=== PATIENT | female | born 1985 | race Caucasian/White ===

== ENCOUNTER 2020-10-25 02:03 | Emergency (ER) | payer BC, SELFPAY ==
[2020-10-25 02:10] VITALS: BP 137/83; PULSE 72; RESP 18; TEMP 36.7; O2SAT 98; BMI 27.4
--- NOTE | 2020-10-25 02:35 | PC.NURSE ---
PATIENT WAKING UP YELLING AT STAFF TO LOWER THE HEAD OF THE BED, PATIENT SWEARING I HAVE BEEN HERE FOR FUCKING HOURS, I AM TRYING TO GET SOME GODDAMN SLEEP EDUCATING PATIENT THAT SHE HAS BEEN IN THE ER FOR 17 MINUTES. PATIENT SIGHING AND ASKING NOW TO BE LEFT ALONE. ALSO RECEIVING A PHONE CALL FROM A MAN CLAIMING TO BE HER BOYFRIEND, REPORTS THAT HE WAS IN THE BUILDING WITH HER, EMS DENIED ANYONE ELSE IN THE APARTMENT, THIS INDIVIDUAL ON THE PHONE GIVING THE WRONG DATE OF FOR PATIENT. WANTING CONFIRMATION THAT SHE WAS IN THE EMERGENCY DEPARTMENT HERE. STATING THAT IF A PATIENT IS OVER THE AGE OF 18 NO INFORMATION CAN BE GIVEN WITHOUT PATIENTS CONSENT. ASKING FOR HIS NUMBER SO PATIENT CAN CALL HIM IF SHE WOULD LIKE TOO. CALLER ON THE PHONE BECOMING VERBALLY ABUSIVE, SWEARING AT THIS STAFF MEMBER DEMANDING TO KNOW ABOUT PATIENT. CONTINUING TO ASK FOR HIS NAME AND NUMBER, CALLER EVENTUALLY PROVIDING THE INFORMATION. NUMBER GIVEN TO PATIENT WHO IS UNABLE TO MAKE A PHONE CALL AT THIS TIME DUE TO LEVEL OF INTOXICATION.
--- NOTE | 2020-10-25 03:59 | PC.NURSE ---
Attempted to draw lab on patient. Patient was sleeping and told this tech to leave me the fuck alone upon arousal. Patient refused to remove self from underneath blanket. This tech attempted 3x, patient ignoring tech and/or swearing each time.
[2020-10-25 04:00] VITALS: PULSE 75; RESP 16; O2SAT 99
--- NOTE | 2020-10-25 04:25 | ED.ALCOHOL ---
HPI - Alcohol General Chief Complaint: ETOH/Substance Use Stated Complaint: ETOH Time Seen by Provider: 10/25/20 04:25 Source: patient and EMS Mode of arrival: EMS History of Present Illness HPI narrative: 35-year-old female arrives via EMS brought in home when police had arrived home after being called for the smoke alarm going off the patient was cooking patient was noted be intoxicated initially in the closet stating that she was white and afraid of the police . Patient denies any acute complaints such as shortness of breath, chest pain / palpitations, any GI symptoms. Related Data Allergies Allergy/AdvReac Type Severity Reaction Status Date / Time Penicillins Allergy Hives Verified 10/25/20 02:09 Review of Systems Review of Systems: Pertinent positives and negatives as stated in HPI and 10 of systems is otherwise negative. PMFSH Past Medical History Source: nursing notes reviewed Social History Social History Advance Directives: No Advance Directives Information Provided: No Patient : No Physical Exam Vital Signs: Vital Signs: Last Vital Signs Temp 98.0 F 10/25/20 02:10 Pulse 75 10/25/20 06:00 Resp 16 10/25/20 06:00 BP 137/83 10/25/20 02:10 Pulse Ox 94 10/25/20 06:00 Body Mass Index 27.4 VITAL SIGNS: Reviewed. GENERAL: Intoxicated, Well developed, well nourished, in no acute distress. HEAD: Normocephalic/atraumatic EYES: PERRLA, EOMI OROPHARYNX: no oral lesions noted, posterior pharynx clear LUNGS: Normal breath sounds. SpO2<94> CARDIOVASCULAR: Regular rate and rhythm without noted murmurs ABDOMEN: Soft, non-tender, non-distended with bowel sounds. SKIN: Inspection of the skin reveals no rashes NEUROLOGIC: Alert and oriented x 4. Course Course Course Narrative: 35-year-old female with history clinical presentation consistent intoxication. Patient requires further observation in the emergency room secondary to her intoxication and inability to obtain a safe ride home. 0545: Patient re-evaluated and is clinically sober to obtain commercial transportation home. She walks with steady gait and was discharged in stable condition. Discharge Plan Discharge Clinical Impression: Alcoholic intoxication Patient Disposition: Home, Self-Care Instructions: Alcohol Intoxication (ED), Abuse of Alcohol (ED) Additional Instructions: Return to the ER for acute worsening of symptoms Referrals: Physician,Unknown [Primary Care Provider] - 2 days Interventions: ED Discharge Assessment Last Done: 10/25/20 06:47 Discharge Date/Time: 10/25/20 06:48
[2020-10-25 06:00] VITALS: PULSE 75; RESP 16; O2SAT 94
--- NOTE | 2020-10-25 06:22 | PC.NURSE ---
Pt suddenly awoke from a sleep fuck you bitches, you promised me juice crackers, and a cab ride home. Pt had verbalized to doctor that she would obtain an uber home. pt is alert and orientated x 4 with steady gait. skin p/w/d. Pt behavior continued to escliate and provider stated pt was cleared to leave and subsequently escorted out by security.
--- NOTE | 2020-10-25 06:26 | PC.NURSE ---
patient yelling out into the hallway i know you bitches can all hear me. where are my fucking juice and crackers . patient was reevaluated by provider and offered a snack and that plan of care was for her to be discharged home. patient responding that she will get an uber home. after waiting about 3 minutes for a snack patient starts yelling and using fowl language at staff, screaming about her juice and crackers. security being called due to patients increasing hostility. where is my fucking cab, you were supposed to call me one . staff members having no conversation with patient about needing a cab, patient informed staff she would be getting an uber. patient given a cup for water and salines from security as she waits for a ride in the waiting room.
== END 2020-10-25 06:48 | disposition home or self-care (01) ==
PROVIDERS: Emergency Provider Student in an Organized Health Care Education/Training Program
DX: F10.129 Alcohol abuse with intoxication, unspecified (principal); Y90.9 Presence of alcohol in blood, level not specified
CPT/HCPCS: 99283; 99284

== ENCOUNTER 2021-05-24 15:02 | Emergency (ER) | payer BC, SELFPAY ==
--- NOTE | 2021-05-24 15:16 | ED_ITS ---
HPI - Psych General Chief Complaint: Psychiatric Symptoms Stated Complaint: CRISIS, NON MED COMPLIANT PER EMS Time Seen by Provider: 05/24/21 15:15 Source: patient Mode of arrival: EMS Limitations: no limitations History of Present Illness MD complaint: feels depressed (coming off of lexapro of her own choosing due to weight gain and other side effects has fleeting thoughts of SI told a friend today who then told her mom - mom called 911) Onset (ago): month(s) (1) Duration: intermittent History of same: Yes Relieving factors: none Exacerbating factors: medication Context: not taking psychiatric medications Associated psychiatric symptoms: depression and suicidal ideation Associated symptoms: denies other symptoms Treatments prior to arrival: none Related Data Home Medications Medication Instructions Recorded Confirmed escitalopram oxalate 20 mg tablet 1 tab PO DAILY 05/24/21 05/24/21 methocarbamol 500 mg tablet 1 tab PO DAILY 05/24/21 05/24/21 Allergies Allergy/AdvReac Type Severity Reaction Status Date / Time Penicillins Allergy Hives Verified 10/25/20 02:09 Review of Systems Verdana 4l Review of Systems: Verdana 4d Verdana 4d Constitutional : No Fever, No Chills ENT/Mouth : No Ear Pain, No Nasal Congestion, No sore throat Eyes: No Eye Pain, No Swelling, No Redness Cardiovascular : No Chest Pain, No SOB Respiratory : No Cough, No Sputum, No Dyspnea GastrointestinalGastrointestinal : No Nausea, No Vomiting, No Diarrhea, No Hematochezia, No Melena Genitourinary : No Dysuria, No Urinary Frequency, No Hematuria Musculoskeletal : No Myalgias Skin : No Skin Lesions, No rash Neuro : No Weakness, No Numbness, No Paresthesias, No Dizziness, No Headache Psych : positive Anxiety, positive Depression, positive intermittent SI no HI Heme/Lymph: No Lymphadenopathy Endocrine : No Polyuria, No Polydipsia All other systems reviewed and are negative [facility] Past Medical History Attestation statement: The following information was validated with the patient. Medical History Anxiety Depression Social History Social History (Updated 05/24/21 @ 15:43 by Cristina Bonner DO) Patient Tobacco Use Status: Never used Tobacco Substance Use Type: Marijuana Advance Directives: No Advance Directives Information Provided: No Physical Exam Verdana 4l Vital Signs: Verdana 4d Verdana 4d Vital Signs: Verdana 4d Verdana 4Bd Last Vital Signs Verdana 4d Broommaking Supervisor New 4d Broommaking Supervisor New 4d Temp 98.0 F 05/24/21 19:27 Broommaking Supervisor New 4d Pulse 63 05/24/21 19:27 Broommaking Supervisor New 4d Resp 18 05/24/21 19:27 BP 136/92 H 05/24/21 19:27 Pulse Ox 100 05/24/21 19:27 BMI result Body Mass Index 29.2 Appearance: Alert. Oriented X3. No acute distress. Slightly agitated Eyes: Pupils equal, round and reactive to light. Sunglasses on ENT: Pharynx normal. Neck: Normal inspection. Neck supple. CVS: Normal heart rate and rhythm. Pulses normal. Respiratory: No respiratory distress. Breath sounds normal. Abdomen: Soft and nontender. Skin: Skin warm and dry. Normal skin color. Normal skin turgor. Extremities: No lower extremity edema. No calf ttp Neuro: Oriented X 3. No motor deficit. No sensory deficit. CN2-12 intact Course Course Course Narrative: Physician observation started at 851pm Patient placed in physician observation because the patient needed more time for CARE team to assess the need for inpatient placement. At the time observation was started the patient's vitals were stable, patient is alert and oriented but slightly anxious, Neuro: nonfocal, CV RRR, Lungs clear MDM - Psych MDM Narrative Medical decision making narrative: 35 yo female with depression and anxiety here with c/o feeling depressed and thoughts of SI - no plan. Noted she told her friend today about it and her friend called her mom who then called 911. The patient seems guarded and a gitated. It is a side effect of the medication. At this time will refer to CARE team. Lab Data Labs: Lab Results 05/24/21 05/24/21 Range/Units 17:11 17:12 Urine Opiates Screen Not Detected (Not Detect) Urine Fentanyl Screen Not Detected (Not Detect) Ur Barbiturates Screen Not Detected (Not Detect) Ur Phencyclidine Scrn Not Detected (Not Detect) Ur Amphetamines Screen Not Detected (Not Detect) U Benzodiazepines Scrn Not Detected (Not Detect) Urine Cocaine Screen Not Detected (Not Detect) U Marijuana (THC) Screen POSITIVE H (Not Detect) COVID-19 (MJ) Negative (Negative) COVID-19 Clin Com See Note Discharge Plan Discharge Clinical Impression: Depression Patient Disposition: Still a Patient Prescriptions: No Action methocarbamol 500 mg tablet 1 tab PO DAILY 0RF escitalopram oxalate 20 mg tablet 1 tab PO DAILY 0RF
[2021-05-24 15:17] VITALS: BP 120/76; PULSE 72; RESP 16; TEMP 37; O2SAT 99
[2021-05-24 15:24] VITALS: BP 120/76; PULSE 74; PULSE 80; RESP 16; TEMP 37; O2SAT 98; O2SAT 99; BMI 29.2
[2021-05-24 17:40] LABS: Amphetamine Screen Urine Not Detected (Not Detect); Barbiturates, Urine Not Detected (Not Detect); Benzodiazepines Screen Urine Not Detected (Not Detect); Cannabinoid Screen Urine POSITIVE (Not Detect); Cocaine Screen Urine Not Detected (Not Detect); Fentanyl, urine Not Detected (Not Detect); Opiate Screen Urine Not Detected (Not Detect); Phencyclidine Screen Urine Not Detected (Not Detect)
[2021-05-24 17:43] LABS: COVID-19 Test Negative (Negative)
[2021-05-24 19:27] VITALS: BP 136/92; PULSE 63; RESP 18; TEMP 36.7; O2SAT 100
[2021-05-24] MEDS: diphenhydrAMINE HCL 25 MG TABLET 50 MG PO (23:07)
[2021-05-24] MEDS: LORazepam 1 MG TABLET 2 MG PO (23:07)
[2021-05-24 23:21] VITALS: BP 143/97; PULSE 79; RESP 20; TEMP 36.9; O2SAT 98
--- NOTE | 2021-05-25 05:43 | PC.NURSE ---
Patient slept through the night, no distress observed/reported, patient had one episode emotional break down, Ativan 2 mg and Benadryl 50 mg administered at 2307 with + effect, patient was interviewed by Care Team, no disposition established yet, patient will be reassessed in the morning by care-team, will continue to monitor.
--- NOTE | 2021-05-25 07:19 | PC.NURSE ---
patient appears to remain asleep at present respirations are even and unlabored patient appears in no distress.
[2021-05-25 08:04] VITALS: BP 113/74; PULSE 70; RESP 15; TEMP 36.9; O2SAT 100
--- NOTE | 2021-05-25 11:17 | PC.NURSE ---
patient wants us to give no further contact with mother.
--- NOTE | 2021-05-26 09:20 | MHC.CARE ---
0920 - CARE Team calls pt as a follow up to her discharge on 05/25/21. Phone went to [employer]. Mailbox was not set up so CARE Team was unable to leave a message. Pt stated she works from home during the day and would be available during the day for follow up calls.
--- NOTE | 2021-05-26 16:26 | MHC.CARE ---
Pt called in reporting that she received a call from CARE team. CARE team called her to provide support/ check in call. Pt discussed that she is feeling better, she will be calling [facility]RAIN[employer]PER[employer] to put herself back on list- hopes to still get the same previous therapist she had. Pt reports she has a PCP appointment to follow up this week. CARE team informed her that we are available as needed.
== END 2021-05-25 15:45 | disposition home or self-care (01) ==
PROVIDERS: Emergency Provider Emergency Medicine; PCP Physician Assistant
DX: F32.A Depression, unspecified (principal); R45.851 Suicidal ideations; F41.9 Anxiety disorder, unspecified; R45.1 Restlessness and agitation; Z91.14 Patient's other noncompliance with medication regimen; Z20.822 Contact with and (suspected) exposure to COVID-19
CPT/HCPCS: 80307; 87635; 99284; Q0163

== ENCOUNTER 2023-02-01 15:54 | Outpatient (AMB) | payer OTHER, SELFPAY ==
--- NOTE | 2023-02-01 16:00 | MHC.PC.OV ---
Vital Signs 02/01/23 16:02 Height 5 ft 2 in Weight 115 lb BMI 21.0 BP 118/68 Blood Pressure Location Lt brachial Position Sitting Pulse 73 Pulse Source Pulse Oximeter Pulse Oximetry (%) 98 Oxygen Delivery Method Room Air Intake Visit Reasons: Extended exam with f/u labs and health maint. Intake Note: Patient is here for a physical and is concerned over hemhhoroid, not bleeding for about 3 weeks. Patient would like to talk about referral for therpy. Allergies Penicillins Allergy (Verified 02/01/23 16:05) Hives Tobacco use date assessed: 02/01/23 Dental Screening Dental Screen Date: 02/01/23 Did you have a dental visit in the last 12 months?: Yes Did you have a dental problem in the last 6 months where you did not have access to dental care?: No Was dental information given to patient?: Patient has dentist HPI Extended exam with f/u labs and health maint. HPI Details 37 y/o female presents for a CPE with f/u labs and health maintenance. No recent labs to review. Pt reports she is concerned about hemorrhoids today. She reports she has been treating it with a cream from [facility]. She is requesting a referral to GI. She reports loss in appetite and has been losing weight. She does note she feels like weight loss has plateaued. She has been off of EtOH for 15 months. She reports anxiety/depression. [facility] Medical History Anxiety Depression Social History Housing: Apartment Patient Tobacco Use Status: Never used Tobacco e-Cigarette/Vaping Use: Never Used Substance Use Type: Marijuana service: No Current occupational status: employed Current occupational exposures/hazards: No Cognitive needs: No Hearing needs: No Vision needs: No Questionnaire PHQ-9 Over the last 2 weeks, how often have you been bothered by any of the following problems? 1. Little interest or pleasure in doing things: several days 2. Feeling down, depressed, or hopeless: several days 3. Trouble falling or staying asleep, or sleeping too much: nearly every day 4. Feeling tired or having little energy: nearly every day 5. Poor appetite or overeating: nearly every day 6. Feeling bad about yourself - or that you are a failure or have let yourself or your family down: several days 7. Trouble concentrating on things, such as reading the newspaper or watching television: not at all 8. Moving or speaking so slowly that other people could have noticed. Or the opposite - being so fidgety or restless that you have been moving around a lot more than usual: not at all 9. Thoughts that you would be better off or of hurting yourself in some way: not at all Total score: 12 Source: Developed by Drs. Bassam Soriano, Brie Varma, Aurelio Scott and colleagues, with an educational hossein from [employer]. AUDIT C Alcohol Use Questionnaire (AUDIT-C) 1. How often do you have a drink containing alcohol?: Never 3. How often do you have six or more drinks on one occasion?: Never Total Score: 0 SIMRAN-7 AMB Questionnaire SIMRAN-7 Date SIMRAN - 7 assessed: 02/01/23 Feeling nervous, anxious, or on edge: 2 = More than half the days Not being able to stop or control worryin = Several days Worrying too much about different things: 3 = Nearly every day Trouble relaxin = Several days Being so restless that it is hard to sit still: 1 = Several days Becoming easily annoyed or irritable: 3 = Nearly every day Feeling afraid as if something awful might happen: 1 = Several days Total SIMRAN-7 score (0-4 normal; 5-9 mild; 10-14 moderate; 15-21 severe): 12 Source: Developed by Drs. Bassam Soriano, Brie Varma, Aurelio Scott and colleagues, with an educational hossein from [employer]. Review of Systems Const Denies chills, Denies fatigue, Denies fever(s), Denies headache(s) and Denies weakness Eyes Denies change in vision ENT Denies dizziness, Denies headache(s), Denies hearing loss, Denies nasal congestion, Denies sinus pain, Denies sinus pressure and Denies sore throat Card Denies chest pain, Denies lightheadedness, Denies dyspnea and Denies other (palpitations) Resp Denies cough, Denies dyspnea and Denies wheezing GI Denies abdominal pain, Denies melena, Denies hematochezia, Denies change in bowel habits, Denies dyspepsia and Denies nausea Denies hematuria and Denies dysuria Musc Denies abnormal gait, Denies myalgias, Denies arthralgias, Denies numbness and Denies tingling Skin/Breast Denies rash, Denies unusual bruising and Denies wounds Neuro Denies abnormal gait, Denies dizziness, Denies headache(s), Denies memory loss, Denies numbness, Denies Sensory deficit (Neuro), Denies tingling and Denies weakness Psych Reports anxiety, Reports depression and Denies memory loss Endo Denies cold intolerance, Denies fatigue, Denies heat intolerance, Denies polydipsia and Denies polyuria Yuri/Lymph Denies easy bleeding and Denies easy bruising Aller/Immun Denies wheezing Physical exam (Primary Care) Vital Signs: Last Vital Signs Pulse 73 02/01/23 16:02 BP 118/68 02/01/23 16:02 Pulse Ox 98 02/01/23 16:02 Oxygen Delivery Method Room Air 02/01/23 16:02 BMI result Body Mass Index 21.0 Tobacco/Smoking Status: Tobacco use Status Tobacco use date assessed 02/01/23 02/01/23 16:14 Patient Tobacco Use Status Never used Tobacco 02/01/23 16:01 e-Cigarette/Vaping Use Never Used 02/01/23 16:01 PHQ-9: PHQ-9 Score PHQ-9: Total score 12 02/01/23 16:14 Const General: no acute distress, well developed, alert and awake Nutritional Appearance: well nourished Orientation/consciousness: patient oriented x3 HENMT Head: Yes normocephalic and Yes atraumatic Ears: hearing grossly normal bilaterally and TM's normal bilaterally General nose exam: Normal external nose present and Normal nares present Mouth: Normal oral and palatal mucosa present and moist mucous membranes Teeth and gingiva: dentition normal Throat: Yes posterior oropharynx normal Eyes General: appearance normal, both eyes and all related structures Pupils: Equal, round and reactive pupils present and Pupil accommodation reflex normal EOM: EOMs intact bilaterally Neck Neck: Yes normal visual inspection, Yes no lymphadenopathy and Yes trachea midline Thyroid: Thyroid normal Carotids: no bruits Lymphatic: no lymphadenopathy noted Chest Chest palpation & inspection: normal inspection of the chest Resp Effort & Inspection: normal respiratory effort Auscultation: clear to auscultation bilaterally Cardio Rate: regular rate Rhythm: regular rhythm Heart sounds: S1 normal heart sound present, S2 normal heart sound present, no gallops, no murmurs and no rubs Bruits: no abdominal aortic bruits and no carotid bruits GI Other: LLQ Abd. tenderness Palpation (GI): No Abdominal aortic bruit present, Soft to palpation, nontender, No hepatosplenomegaly present and No Rebound tenderness present Auscultation: normal bowel sounds General: Yes no CVA tenderness Back/Spine/Pelvis Back: no CVA tenderness Cervical Spine: cervical ROM normal and No Cervical spine tenderness Thoracic/Lumbar Spine: thoraco-lumbar ROM normal, No pain with thoraco-lumbar ROM, No thoracic spinal tenderness and No lumbar spinal tenderness Skin Lesions: no lesions Rashes: no rashes Trauma: no lacerations or abrasions Wounds: no wounds Nails: normal Neuro General: patient oriented x3 Cranial nerves: Yes Equal, round and reactive pupils present Cognition (Neuro): normal cognition Gait exam (Neuro): Normal gait present Motor exam (neuro): 5/5 motor strength present throughout Sensory Exam: No Sensory deficit (Neuro) Deep tendon reflexes (DTR's): Right patellar reflex intensity grade: 2+ and Left patellar reflex intensity grade: 2+ Extrem General: Yes normal to inspection and No edema Psych Appearance: grossly normal Affect: normal affect Attitude: cooperative Thought process: Normal thought process present Assessment and Plan Assessment & Plan (1) Adult general medical exam: Code(s): Z00.00 - Encounter for general adult medical examination without abnormal findings Plan: 37-year-old?female?presents?for?complete?physical?exam Encouraged?healthy?diet?with?active?lifestyle?and?exercise?as?tolerated (2) Anxiety with depression: Code(s): F41.8 - Other specified anxiety disorders Plan: Last?the?nurse?navigator?to?help?her?with?her?therapist. She?says?she?already?has?a?therapist?but?is?having?difficulty?with?getting?this?approved?with?her?insurance. Had?been?on?Lexapro?in?the?past?which?he?said?did?help?but?she?does?not?want?to?start?a?medication?for?anxiety?at?present. I?let?her?know?that?we?could?discuss?this?in?the?future?if?she?feels?it?would?help?again. (3) Hemorrhoids: Code(s): K64.9 - Unspecified hemorrhoids Plan: Severe?pain?from?hemorrhoids Keep?stools?soft.??Hydrate?well?and?try?MiraLax Will?give?her?some?dibucaine Patient?says?she?needs?to?see?GI?right?away. Refer. Try?the?above?while?waiting. (4) Loss of appetite: Code(s): R63.0 - Anorexia Plan: Also?having?issues?with?loss?of?appetite,?mild?abdominal?discomfort?and?weight?loss. As?above,?referred?to?GI (5) Weight loss: Code(s): R63.4 - Abnormal weight loss Plan: As?above (6) Screening for cervical cancer: Code(s): Z12.4 - Encounter for screening for malignant neoplasm of cervix Plan: Will?discuss?at?next?encounter Orders: Orders Complete Blood Count Auto Diff Today Z00.00 - Encounter for general adult medical examination without abnormal findings Lipid Panel Today Z00.00 - Encounter for general adult medical examination without abnormal findings Microalbumin, Random (w Creat) Today I10 - Essential (primary) hypertension TSH reflex Free T4 Today Z00.00 - Encounter for general adult medical examination without abnormal findings Hepatitis B,C Profile Today Z11.3 - Encounter for screening for infections with a predominantly sexual mode of transmission Comprehensive [place]. Panel Fast Today Z00.00 - Encounter for general adult medical examination without abnormal findings UA and rflx microscopic Today Z00.00 - Encounter for general adult medical examination without abnormal findings Referrals Gastroenterology Referral K64.9 - Unspecified hemorrhoids, R63.0 - Anorexia, R63.4 - Abnormal weight loss Nurse Navigator Referral F41.8 - Other specified anxiety disorders Medications: New polyethylene glycol 3350 (Miralax) 17 grams PO DAILY 170 grams 1RF 10 days dibucaine 1% (Hemorrhoidal-Analgesic) 1 appl topical TID 28 grams 1RF 7 days Refilled fexofenadine (Tri Allergy) 180 mg PO DAILY 90 tabs 3RF 90 days Coding Level of Care Code Est Pt Level 3 (19855) Est Pt Prev Care 18-39y(52961) Diagnoses Adult general medical exam Z00.00 Anxiety with depression F41.8 Hemorrhoids K64.9 Loss of appetite R63.0 Weight loss R63.4 Screening for cervical cancer Z12.4
[2023-02-01 16:02] VITALS: BP 118/68; PULSE 73; O2SAT 98; BMI 21.0
== END 2023-02-01 17:13 | disposition home or self-care (01) ==
PROVIDERS: PCP Family Medicine; Visit Provider Family Medicine
DX: Z00.00 Encounter for general adult medical examination without abnormal findings (principal); F41.8 Other specified anxiety disorders; K64.9 Unspecified hemorrhoids; R63.0 Anorexia; R63.4 Abnormal weight loss
CPT/HCPCS: 99395

== ENCOUNTER 2023-02-06 09:31 | Outpatient (REF) | payer OTHER, SELFPAY ==
[2023-02-06 11:11] LABS: MANUAL DIFF FLAG NO
[2023-02-06 11:21] LABS: Appearance Urine Cloudy; Color Urine Dark Yellow; Glucose Urine UA Negative (Negative); Leukocyte Esterase Urine Large (3+) (Negative); Nitrite Urine Negative (Negative); Specific Gravity - Urine 1.025 (1.005-1.025); UMIC TRIGGER UA YES; Urine Blood Negative (Negative); Urine Ketones Trace mg/dL (Negative); Urine Protein Trace mg/dL (Neg-Trace)
[2023-02-06 11:32] LABS: Bacteria Urine 3+ (None Seen); Hyaline Casts Urine 0-2 /LPF (0-2); RBC Urine 0-2 /HPF (0-2); Squamous Epithelial Cell Urine >20 /HPF (0-2)
[2023-02-06 11:40] LABS: Basophils Percent Auto 0.8 % (0-2); Eosinophils Absolute Auto 0.1 X10*3/uL (0.0-0.4); Eosinophils Percent Auto 2.3 % (0-4); Hemoglobin 13.3 g/dl (12.0-16.0); Imm Gran Abs Auto 0.01 X10*3/uL (0.00-0.03); Imm Gran Pct Auto 0.2 % (0.0-0.4); Lymphocytes Absolute Auto 1.7 X10*3/uL (1.2-4.9); Lymphocytes Percent Auto 34.9 % (20-40); Mean Corpuscular HGB Conc 34.1 g/dl (31.0-35.0); Mean Corpuscular Hemoglobin 31.3 pg (27.0-33.0); Mean Corpuscular Volume 91.8 fL (80.0-98.0); Mean Platelet Volume 11.5 fL (9.4-12.3); Monocytes Absolute Auto 0.5 X10*3/uL (0.1-1.2); Monocytes Percent Auto 10.1 % (2-11); Neutrophils Absolute Auto 2.5 x10*3/uL (2.0-8.3); Neutrophils Percent Auto 51.7 % (45-73); Platelet Count 216 X10*3/uL (160-400); Red Blood Count 4.25 X10*6/uL (4.20-5.50); White Blood Count 4.8 X10*3/uL (4.8-10.8)
[2023-02-06 12:44] LABS: HBS Num1 0.42 mIU/mL (0-7.99); HBc Num1 0.06 S/CO (0.00-0.79); HBsAGNum1 0.32 S/CO (0.00-0.99); Hepatitis B Core Antibody Nonreactive (Nonreactive); Hepatitis B Surface Antigen Negative (Negative); ~HepC Num1 0.04 S/CO (0.00-0.79); ~Hepatitis B Surface Antibody NONREACTIVE (Nonreactive); ~Hepatitis C Antibody Nonreactive (Nonreactive)
[2023-02-06 12:44] LABS: Creatinine Urine 286.04 mg/dL
[2023-02-06 12:59] LABS: Alanine Aminotransferase 10 U/L (0-31); Alkaline Phosphatase 33 U/L (39-117); Anion Gap 14 (12-20); Aspartate Amino Transferase 13 U/L (5-31); Bilirubin Total 0.6 mg/dL (0.0-1.0); Blood Urea Nitrogen 8 mg/dL (9-16); Calcium 9.3 mg/dL (8.4-10.2); Carbon Dioxide 23 mmol/L (22-29); Chloride 104 mmol/L (96-108); Cholesterol 246 mg/dL (<200); Estimated Glomerular Filt Rate > 60; Glucose Fasting 90 mg/dL (60-99); HDL Cholesterol 55 mg/dL (>40); LDL Cholesterol Calculated 173 mg/dL (<100); Potassium 3.8 mmol/L (3.3-5.1); Sodium 137 mmol/L (135-145); TSH reflex Free T4 1.78 uIU/mL (0.32-4.0); Total Protein 6.4 g/dL (6.5-8.0); Triglycerides 92 mg/dL (<150)
== END 2023-02-06 09:32 | disposition home or self-care (01) ==
LOC: HO.WFDLDS 09:31
PROVIDERS: Visit Provider Family Medicine
DX: Z00.00 Encounter for general adult medical examination without abnormal findings (principal); Z11.3 Encounter for screening for infections with a predominantly sexual mode of transmission; I10 Essential (primary) hypertension
CPT/HCPCS: 36415; 80053; 80061; 81001; 82043; 82570; 84443; 85025; 86704; 86706; 86803; 87340

== ENCOUNTER 2023-02-15 13:01 | Outpatient (AMB) | payer OTHER, SELFPAY ==
[2023-02-15 13:09] VITALS: BP 115/69; PULSE 78; O2SAT 100; BMI 21.2
--- NOTE | 2023-02-15 13:09 | A.OFFVIS_ITS ---
Intake Vital Signs 02/15/23 13:09 Height 5 ft 2 in Weight 115 lb 15.41 oz BMI 21.2 BP 115/69 Blood Pressure Location Rt brachial Position Sitting Pulse 78 Pulse Source Pulse Oximeter Pulse Oximetry (%) 100 Oxygen Delivery Method Room Air Intake Visit Reasons: Hemoroids, Anorexia, Weight Loss Intake Note: Pt presents to the office today for a new patient visit for hemorroids,anorexia,weight loss. Pt states she is on a gluten grain free diet which is helping her with her abdominal pain and digestion. Pt states she is having issues with her hemorrhoids still. Pt denies any N/V/D. Allergies Penicillins Allergy (Verified 02/15/23 13:12) Hives HPI Hemoroids, Anorexia, Weight Loss HPI Details 37-year-old female with past medical his tory of weight loss, loss of appetite, history of alcohol abuse, is here today for initial consultation. Patient reports trouble eating certain food. Patient states that she started avoiding gluten, grain and her symptoms of abdominal pain, bloating have subsided. Patient however reports that she is unable to move her bowels completely. Reports rectal pain and occasional blood. Patient admits to drinking alcohol few years back, however in the last few months she has been eating very healthy. Patient also takes supplements that all her helping her feel better. Recent blood work done just less than 1 week ago. Patient has n ormal CBC. No anemia. Patient denies actual melena, hematochezia, unintentional weight loss or ribbon like stools. However patient did lose about 15 lb since June of this year. Patient did made lot of changes in her diet. Patient would rather not take any medications, with a rather figure out which food is making her sick and she should stay away from. Patient also does not empty her bowels completely, will try Senokot tea first [facility] Medical History Anxiety Depression Family History Mother Diverticulitis Social History Housing: Apartment Alcohol intake: never Patient Tobacco Use Status: Never used Tobacco e-Cigarette/Vaping Use: Never Used Substance Use Type: Marijuana service: No Current occupational status: employed Current occupational exposures/hazards: No Cognitive needs: No Hearing needs: No Vision needs: No Review of Systems Const Denies weight gain and Denies weight loss ENT Reports no additional complaints, Denies dysphagia and Denies odynophagia Card Reports no additional complaints Resp Reports no additional complaints GI Denies abdominal pain, Denies belching, Denies melena, Denies bloating, Denies change in bowel habits, Denies dysphagia, Denies excessive flatus, Denies dyspepsia, Denies heartburn, Denies diarrhea, Denies loose stools, Denies nausea, Denies odynophagia and Denies vomiting Reports no additional complaints Musc Reports no additional complaints Neuro Reports no additional complaints Psych Reports no additional complaints Endo Reports no additional complaints Physical Exam Vital Signs: Last Vital Signs Pulse 78 02/15/23 13:09 BP 115/69 02/15/23 13:09 Pulse Ox 100 02/15/23 13:09 Oxygen Delivery Method Room Air 02/15/23 13:09 BMI result Body Mass Index 21.2 Const General: healthy appearing, no acute distress and well developed Nutritional Appearance: well nourished Orientation/consciousness: patient oriented x3 HEENT Head: Yes normal to inspection, Yes normocephalic and Yes atraumatic Face and sinus: Yes normal facial exam Mouth: Normal oral and palatal mucosa present Throat: Yes posterior oropharynx normal, Yes tonsils normal and Yes uvula midline Eyes General: appearance normal, both eyes and all related structures Neck Neck: Yes normal visual inspection, Yes full ROM and Yes trachea midline Thyroid: Thyroid normal Resp Effort & Inspection: normal respiratory effort, able to speak in complete sentences, no tracheal deviation and symmetric chest movement Auscultation: clear to auscultation bilaterally Cardio Rate: regular rate Heart sounds: S1 normal heart sound present and S2 normal heart sound present GI Inspection: Yes normal to inspection and No distended Palpation (GI): Soft to palpation, not firm, nontender and No hepatosplenomegaly present Auscultation: normal bowel sounds General: Yes no CVA tenderness Back/Spine/Pelvis Back: no CVA tenderness Skin General skin exam: elasticity normal, turgor normal and dry skin Neuro General: patient oriented x3 Psych Appearance: grossly normal Mental Status: mental status grossly normal Affect: normal affect Assessment & Plan Assessment & Plan (1) Weight loss: Code(s): R63.4 - Abnormal weight loss (2) Loss of appetite: Code(s): R63.0 - Anorexia (3) Hemorrhoids: Code(s): K64.9 - Unspecified hemorrhoids Qualifiers: Hemorrhoid type: unspecified Qualified Code(s): K64.9 - Unspecified hemorrhoids (4) Postprandial abdominal pain in right upper quadrant: Code(s): R10.11 - Right upper quadrant pain (5) Constipation: Code(s): K59.00 - Constipation, unspecified Qualifiers: Constipation type: slow transit constipation Qualified Code(s): K59.01 - Slow transit constipation Plan Will check transglutaminase, vitamin-D, B12 and folate. Patient will start drinking senna tea to help her. She can try hydrocortisone for hemorrhoids. Discussed with patient will FODMAP diet. List of food to recommended as well as list of food to avoid given to patient. Patient will return in the office in 3 months, however she was encouraged to call if she will have any GI concerning symptoms. She is agreeable to this plan and verbalizes understanding of instructions. She was given the opportunity to ask questions and all questions answered. Thank you for allowing me to participate in her care Orders: Orders Transglutaminase IgA 02/15/23 R10.9 - Unspecified abdominal pain Transglutaminase Ab IgG 02/15/23 R10.9 - Unspecified abdominal pain Vitamin D 25-OH (D2 and D3) 02/15/23 E55.9 - Vitamin D deficiency, unspecified Vitamin B12 and Folate 02/15/23 R19.7 - Diarrhea, unspecified Medications: New hydrocortisone 2.5% (Proctosol HC) 1 appl [place] BID-QID PRN 30 grams 2RF hemorrhoids K64.9 - Unspecified hemorrhoids hydrocortisone acetate 30 mg [place] BEDTIME 12 ea 0RF 3 weeks Coding Level of Care Code New Pt Level 4 (78310) Diagnoses Weight loss R63.4 Loss of appetite R63.0 Hemorrhoids, unspecified hemorrhoid type K64.9 Hemorrhoid type: unspecified Postprandial abdominal pain in right upper quadrant R10.11 Slow transit constipation K59.01 Constipation type: slow transit constipation Time Spent (min) 45 Comment 30 minutes spent with patient and additional 15 minutes spent reviewing her records
== END 2023-02-15 14:03 | disposition home or self-care (01) ==
PROVIDERS: PCP Family Medicine; Visit Provider Nurse Practitioner Family
DX: R63.4 Abnormal weight loss (principal); R63.0 Anorexia; K64.9 Unspecified hemorrhoids; R10.11 Right upper quadrant pain; K59.01 Slow transit constipation
CPT/HCPCS: 99204

== ENCOUNTER → 2023-02-15 13:01 | Outpatient (BNVA) | payer OTHER, SELFPAY | PROVIDERS: PCP Family Medicine; Visit Provider Nurse Practitioner Family ==

== ENCOUNTER 2023-02-27 15:04 | Outpatient (AMB) | payer OTHER, SELFPAY ==
--- NOTE | 2023-02-27 14:51 | MHC.PC.OV ---
Intake Visit Reasons: f/u labs Intake Note: Patient is calling to follow up on her labs today. Allergies Penicillins Allergy (Verified 02/15/23 13:12) Hives Tobacco use date assessed: 02/01/23 [facility] [place] Medical History Anxiety Depression Family History Mother Diverticulitis Social History Housing: Apartment Alcohol intake: never Patient Tobacco Use Status: Never used Tobacco e-Cigarette/Vaping Use: Never Used Substance Use Type: Marijuana service: No Current occupational status: employed Current occupational exposures/hazards: No Cognitive needs: No Hearing needs: No Vision needs: No Questionnaire SIMRAN-7 AMB Questionnaire SIMRAN-7 Date SIMRAN - 7 assessed: 02/01/23 Source: Developed by Drs. Bassam Soriano, Brie Varma, Aurelio Scott and colleagues, with an educational hossein from [employer]. Physical exam (Primary Care) Tobacco/Smoking Status: Tobacco use Status Tobacco use date assessed 02/01/23 02/27/23 14:53 Patient Tobacco Use Status Never used Tobacco 02/27/23 14:53 e-Cigarette/Vaping Use Never Used 02/27/23 14:53 Telehealth Telehealth Location of provider rendering services: practice address Location of patient: address on file Patient Identification confirmed using: Name, : Yes Telehealth method: voice only Patient verbally consented to treatment: Yes Patient verbally consented to billing insurance company: Yes Patient informed of any privacy concerns related to visit: Yes Assessment and Plan Assessment & Plan (1) Hyperlipidemia: Code(s): E78.5 - Hyperlipidemia, unspecified Plan: She?will?return?in?3?months?to?follow-up?hyperlipidemia. She?will?work?on?a?diet?low?in?saturated?fats?and?cholesterol.??However,?patient?says?she?is?already?eating?a?very?healthy?diet?and?may?not?be?able?to?improve?further. We?discussed?that?we?may?need?to?use?medication?and?she?is?amenable?to?this?if?necessary. She?will?get?her?blood?drawn?prior?to?that?next?visit (2) Hemorrhoids: Code(s): K64.9 - Unspecified hemorrhoids Plan: Still?having?issues?with?hemorrhoids. 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 No?problems?and?recommended?follow-up?in?3?years Up-to-date Orders: Orders Lipid Panel Today E78.5 - Hyperlipidemia, unspecified Coding Level of Care Code Tele Est Pt Level 2 (75047) Diagnoses Hyperlipidemia E78.5 Hemorrhoids K64.9 Screening for cervical cancer Z12.4
== END 2023-02-27 15:15 ==
LOC: HO.HMGFM 15:04
PROVIDERS: PCP Family Medicine; Visit Provider Family Medicine
DX: E78.5 Hyperlipidemia, unspecified (principal); K64.9 Unspecified hemorrhoids
CPT/HCPCS: 99212

== ENCOUNTER 2023-05-29 09:13 | Outpatient (REF) | payer OTHER, SELFPAY ==
[2023-05-29 12:33] LABS: Anion Gap 10 (12-20); Blood Urea Nitrogen 6 mg/dL (9-16); Calcium 9.2 mg/dL (8.4-10.2); Carbon Dioxide 29 mmol/L (22-29); Chloride 104 mmol/L (96-108); Cholesterol 197 mg/dL (<200); Estimated Glomerular Filt Rate > 60; Glucose Fasting 93 mg/dL (60-99); HDL Cholesterol 58 mg/dL (>40); LDL Cholesterol Calculated 126 mg/dL (<100); Potassium 4.1 mmol/L (3.3-5.1); Sodium 139 mmol/L (135-145); Triglycerides 66 mg/dL (<150)
== END 2023-05-29 09:14 | disposition home or self-care (01) ==
LOC: HO.WFDLDS 09:13
PROVIDERS: Visit Provider Family Medicine
DX: Z00.00 Encounter for general adult medical examination without abnormal findings (principal); E78.5 Hyperlipidemia, unspecified
CPT/HCPCS: 36415; 80048; 80061

== ENCOUNTER 2023-06-01 10:42 | Outpatient (AMB) | payer OTHER, SELFPAY ==
[2023-06-01 10:53] VITALS: BP 112/70; PULSE 58; O2SAT 98; BMI 19.5
--- NOTE | 2023-06-01 10:53 | A.OFFPC_ITS ---
Vital Signs 06/01/23 10:53 Height 5 ft 2 in Weight 106 lb 6 oz BMI 19.5 BP 112/70 Blood Pressure Location Lt brachial Position Sitting Pulse 58 Pulse Source Pulse Oximeter Pulse Oximetry (%) 98 Oxygen Delivery Method Room Air Intake Visit Reasons: follow-up hyperlipidemia Intake Note: Patient is here to follow up on cholesterol today. Patient would like referral to general surgery. Allergies Penicillins Allergy (Verified 06/01/23 10:54) Hives Tobacco use date assessed: 06/01/23 Dental Screening Dental Screen Date: 06/01/23 Did you have a dental visit in the last 12 months?: Yes Did you have a dental problem in the last 6 months where you did not have access to dental care?: No Was dental information given to patient?: Patient has dentist HPI follow-up hyperlipidemia HPI Details 37 y/o female presents to f/u hyperlipid [facility]. Labs were drawn 05/29/23. Reviewed labs with pt. Triglycerides 66. TC 197. LDL improved from 173 to 126. HDL 58. PFSH Medical History Anxiety Depression Family History Mother Diverticulitis Social History Housing: Apartment Alcohol intake: never Patient Tobacco Use Status: Never used Tobacco e-Cigarette/Vaping Use: Never Used Substance Use Type: Marijuana service: No Current occupational status: employed Current occupational exposures/hazards: No Cognitive needs: No Hearing needs: No Vision needs: No Questionnaire PHQ-9 Over the last 2 weeks, how often have you been bothered by any of the following problems? 1. Little interest or pleasure in doing things: not at all 2. Feeling down, depressed, or hopeless: not at all 3. Trouble falling or staying asleep, or sleeping too much: not at all 4. Feeling tired or having little energy: not at all 5. Poor appetite or overeating: not at all 6. Feeling bad about yourself - or that you are a failure or have let yourself or your family down: not at all 7. Trouble concentrating on things, such as reading the newspaper or watching television: not at all 8. Moving or speaking so slowly that other people could have noticed. Or the opposite - being so fidgety or restless that you have been moving around a lot more than usual: not at all 9. Thoughts that you would be better off or of hurting yourself in some way: not at all Total score: 0 Source: Developed by Drs. Bassam Soriano, Brie Varma, Aurelio Scott and colleagues, with an educational hossein from [employer]. AUDIT C Alcohol Use Questionnaire (AUDIT-C) 1. How often do you have a drink containing alcohol?: Never 3. How often do you have six or more drinks on one occasion?: Never Total Score: 0 SIMRAN-7 AMB Questionnaire SIMRAN-7 Date SIMRAN - 7 assessed: 06/01/23 Feeling nervous, anxious, or on edge: 1 = Several days Not being able to stop or control worryin = Several days Worrying too much about different things: 3 = Nearly every day Trouble relaxin = Nearly every day Being so restless that it is hard to sit still: 0 = Not at all Becoming easily annoyed or irritable: 1 = Several days Feeling afraid as if something awful might happen: 1 = Several days Total SIMRAN-7 score (0-4 normal; 5-9 mild; 10-14 moderate; 15-21 severe): 10 Source: Developed by Drs. Bassam Soriano, Brie Varma, Aurelio Scott and colleagues, with an educational hossein from [employer]. Review of Systems Const Denies chills, Denies fatigue, Denies fever(s), Denies headache(s) and Denies weakness ENT Denies dizziness and Denies headache(s) Card Denies dyspnea Resp Denies cough, Denies dyspnea, Denies wheezing and Denies other (shortness of breath) Musc Denies numbness and Denies tingling Neuro Denies dizziness, Denies headache(s), Denies numbness, Denies tingling and Denies weakness Psych Denies anxiety and Denies depression Endo Denies fatigue Aller/Immun Denies wheezing Physical exam (Primary Care) Vital Signs: Last Vital Signs Pulse 58 06/01/23 10:53 BP 112/70 06/01/23 10:53 Pulse Ox 98 06/01/23 10:53 Oxygen Delivery Method Room Air 06/01/23 10:53 BMI result Body Mass Index 19.5 Tobacco/Smoking Status: Tobacco use Status Tobacco use date assessed 06/01/23 06/01/23 10:56 Patient Tobacco Use Status Never used Tobacco 06/01/23 10:56 e-Cigarette/Vaping Use Never Used 06/01/23 10:56 PHQ-9: PHQ-9 Score PHQ-9: Total score 0 06/01/23 11:46 Const General: well developed; No acute distress Nutritional Appearance: well nourished Orientation/consciousness: patient oriented x3 HENMT Head: Yes normocephalic and Yes atraumatic Eyes General: appearance normal, both eyes and all related structures Pupils: Equal, round and reactive pupils present EOM: EOMs intact bilaterally Resp Effort & Inspection: normal respiratory effort Neuro General: patient oriented x3 and gait normal Cranial nerves: Yes Equal, round and reactive pupils present Psych Affect: normal affect Assessment and Plan Assessment & Plan (1) Hyperlipidemia: Code(s): E78.5 - Hyperlipidemia, unspecified Plan: Patient?mad e?significant?improvements?to?her?diet?and?her?lipid?levels?are?all?within?benny l?limits?now. Continue?lifestyle?changes. (2) Hemorrhoids: Code(s): K64.9 - Unspecified hemorrhoids Qualifiers: Hemorrhoid type: unspecified Qualified Code(s): K64.9 - Unspecified hemorrhoids Plan: Ongoing?problems?with?hemorrhoids. Had?seen?Gastroenterology?who?made?recommendations?and?continue d?her?hydrocortisone?cream. Will?refer?to?general?surgery?for?consideration?of?banding?or?other?definitive?t reatment Refilled?her?medications. Plan Of?note,?patient's?BMI?is?19.5. At?lower?end?of?normal. We?discussed?healthy?diet?and?protein.??Patient?is?already?working?on?this.??Micheal l?continue?to?watch?her?body?mass?index. Orders: Referrals General Surgery Referral K64.9 - Unspecified hemorrhoids Medications: Refilled hydrocortisone acetate 30 mg [place] BEDTIME 12 ea 0RF 3 weeks dibucaine 1% (Hemorrhoidal-Analgesic) 1 appl topical TID 28 grams 1RF 7 days Coding Level of Care Code Est Pt Level 3 (68995) Diagnoses Hyperlipidemia E78.5 Hemorrhoids, unspecified hemorrhoid type K64.9 Hemorrhoid type: unspecified
== END 2023-06-01 11:58 | disposition home or self-care (01) ==
PROVIDERS: PCP Family Medicine; Visit Provider Family Medicine
DX: E78.5 Hyperlipidemia, unspecified (principal); K64.9 Unspecified hemorrhoids
CPT/HCPCS: 99213

== ENCOUNTER 2023-06-21 15:25 | Outpatient (AMB) | payer OTHER, SELFPAY ==
--- NOTE | 2023-06-21 15:29 | MHC.OFFVIS ---
Intake Vital Signs 06/21/23 15:37 Height 5 ft 2 in Weight 108 lb BMI 19.8 BP 126/79 Blood Pressure Location Rt brachial Position Sitting Pulse 105 H Intake Visit Reasons: Hemorrhoids Intake Note: This patient presents for an assessment for hemorrhoids. Pt c/o; reports using rectal ointment, reports traveling makes it worse. R&D Engineer Required: No Fence Supervisor: Fence Supervisor Present (Val-ALPHONSE) Accompanied by: Self / Same As Patient Allergies Penicillins Allergy (Verified 06/21/23 15:38) Hives Medication List - Last Reconciled 06/21/23 by Kaden Tillman MD dibucaine 1% (Hemorrhoidal-Analgesic) 1 appl topical TID 7 days fexofenadine (Tri Allergy) 180 mg PO DAILY 90 days hydrocortisone 2.5% (Proctosol HC) 1 appl [place] BID-QID PRN hydrocortisone acetate 30 mg [place] BEDTIME 3 weeks HPI Hemorrhoids HPI Details [age] year old female referred for hemorrhoids. She says that she has noticed this small lump outside her anus for about 5 months now. She thinks that this started when she moved and was lifting a lot of heavy objects with the moved. She denies being constipated. She denies any bleeding. She says she did not have hemorrhoids before. She denies any child or . [facility] Medical History (Updated 06/21/23 @ 16:05 by Kaden Tillman MD) External hemorrhoid Anxiety Depression Surgical History History of wisdom tooth extraction Family History Mother Diverticulitis Skin cancer Sister Skin cancer Social History Housing: Apartment Alcohol intake: never Patient Tobacco Use Status: Never used Tobacco e-Cigarette/Vaping Use: Never Used Substance Use Type: Marijuana service: No Current occupational status: employed Current occupational exposures/hazards: No Cognitive needs: No Hearing needs: No Vision needs: No Review of Systems Const Denies chills and Denies fever(s) Card Denies chest pain, Denies dyspnea and Denies dyspnea on exertion Resp Denies cough, Denies dyspnea and Denies dyspnea on exertion GI Denies hematochezia and Denies change in bowel habits Denies hematuria Musc Denies back pain and Denies limited range of motion Neuro Denies focal weakness and Denies convulsions Psych Denies depression and Denies mood swings Physical Exam Vital Signs: Last Vital Signs Pulse 105 H 06/21/23 15:37 BP 126/79 06/21/23 15:37 BMI result Body Mass Index 19.8 Const Other: Anxious General: comfortable Orientation/consciousness: patient oriented x3 Neck Neck: Yes no lymphadenopathy Resp Auscultation: clear to auscultation bilaterally Cardio Rhythm: regular rhythm GI Other: Rectal exam - small external hemorrhoid posteriorly no fissure Palpation (GI): Soft to palpation, nontender and no guarding Neuro General: patient oriented x3 Office Procedures Anoscopy She was in jacknife position. The anoscope was gently inserted. A full examination of the anal canal was done. She has this external hemorrhoid posteriorly. There were no internal hemorrhoids. There was no fissure. There was no induration. There was no bleeding. There was no tenderness on digital exam [id number] Assessment & Plan Assessment & Plan (1) External hemorrhoid: Code(s): K64.4 - Residual hemorrhoidal skin tags Plan: She has an external hemorrhoid as described above. This is not bulky. I told her that I would not recommend proceeding with hemorrhoidectomy at this point. I did discuss with the option of hemorrhoidectomy as well as the risks, benefits, and alternatives She wants to him avoid hemorrhoidectomy if possible. I will prescribe her Calmoseptine discomfort. She was advised to not use any suppository she can stop her laxatives for now. I told her that she is welcome to come back to the office to be re-evaluated if she has questions or concerns. Coding Level of Care Code New Pt Level 3 (22342) Diagnoses External hemorrhoid K64.4 CPT Codes Details - CPT: 66495-Bcrtxzyc ([id number])
[2023-06-21 15:37] VITALS: BP 126/79; PULSE 105; BMI 19.8
== END 2023-06-21 16:01 | disposition home or self-care (01) ==
PROVIDERS: PCP Family Medicine; Visit Provider Surgery
DX: K64.4 Residual hemorrhoidal skin tags (principal)
CPT/HCPCS: 46600; 99203

== ENCOUNTER → 2023-06-21 15:25 | Outpatient (BNVA) | payer OTHER, SELFPAY | PROVIDERS: PCP Family Medicine; Visit Provider Surgery | DX: K64.4 Residual hemorrhoidal skin tags (principal) | CPT/HCPCS: 46600 ==

== ENCOUNTER 2023-08-24 08:16 | Outpatient (AMB) | payer OTHER, SELFPAY ==
--- NOTE | 2023-08-24 08:16 | AM.OFFWIN_ITS ---
Intake Vital Signs 08/24/23 08:17 Height 5 ft 2 in Weight 106 lb 8 oz BMI 19.5 BP 126/68 Blood Pressure Location Lt brachial Position Sitting Respiration 13 Pulse 84 Pulse Source Pulse Oximeter Temp 97.8 F Temp Source Temporal Artery Scan Pulse Oximetry (%) 99 Oxygen Delivery Method Room Air Intake Visit Reasons: Possible Uti Intake Note: Patient has had unprotected sense and is unsure if shes experiencing a UTI or possible STD/STI exposure. Patient Tobacco Use Status: Never used Tobacco Carriage Feeder Required: No Accompanied by: Self / Same As Patient Allergies Seasonal Allergies Allergy (Intermediate, Verified 08/24/23 08:36) Itchy Eyes Penicillins Allergy (Verified 08/24/23 08:36) Hives Medication List - Last Reconciled 08/24/23 by GABE Mills digestive enzymes 1 cap PO DAILY fexofenadine (Tri Allergy) 180 mg PO DAILY 90 days hydrocortisone 2.5% (Proctosol HC) 1 appl [place] BID-QID PRN magnesium oxide 1,000 mg PO DAILY pepsin (bulk) (Pepsin 3,000 Digestion powder) ea miscellaneous Do you need a note to return to daycare/school/sports/work: No HPI HPI Comments History of Present Illness Details Worried she has a UTI Urine is darker yellow Feels off in urethra/UTI Unprotected sex with new partner Would like STD workup. LMP 1 week ago. Denies chance of . Denies fever, chills, n/v/d, abd pain, vaginal discharge. [facility] Medical History (Updated 08/24/23 @ 08:48 by GABE Mills) External hemorrhoid Anxiety Depression Surgical History History of wisdom tooth extraction Family History Mother Diverticulitis Skin cancer Sister Skin cancer Social History Housing: Apartment Alcohol intake: never Patient Tobacco Use Status: Never used Tobacco e-Cigarette/Vaping Use: Never Used Substance Use Type: Marijuana service: No Current occupational status: employed Current occupational exposures/hazards: No Cognitive needs: No Hearing needs: No Vision needs: No Review of Systems Const All systems reviewed & are unremarkable except as noted in HPI and below Physical Exam Vital Signs: Last Vital Signs Temp 97.8 F 08/24/23 08:17 Pulse 84 08/24/23 08:17 Resp 13 08/24/23 08:17 BP 126/68 08/24/23 08:17 Pulse Ox 99 08/24/23 08:17 Oxygen Delivery Method Room Air 08/24/23 08:17 BMI result Body Mass Index 19.5 Const Other: AWAKE ALERT ANXIOUS SELF SWAB FOR BV YIELEDED YELLOW SLIGHTLY BLOODY DRAINAGE Assessment & Plan Assessment & Plan (1) STD exposure: Comment: ORDERS PLACED TODAY WILL BE UPDATED WITH ANY + RESULTS AND TX APPROPRIATE Code(s): Z20.2 - Contact with and (suspected) exposure to infections with a predominantly sexual mode of transmission (2) UTI symptoms: Comment: SEE ABOVE Code(s): R39.9 - Unspecified symptoms and signs involving the genitourinary system Plan: . Plan . Orders: Orders HIV Ab/Ag Today Bacterial Vaginosis Panel Today Herpes Simplex Virus Ab IgG Today Syphilis Screen Today Hepatitis A,B,C Profile Today CT NG by PCR Today UA and rflx microscopic Today Coding Level of Care Code Est Pt Level 4 (65001) Diagnoses STD exposure Z20.2 UTI symptoms R39.9
[2023-08-24 08:17] VITALS: BP 126/68; PULSE 84; RESP 13; TEMP 36.6; O2SAT 99; BMI 19.5
== END 2023-08-24 09:03 | disposition home or self-care (01) ==
PROVIDERS: PCP Family Medicine; Visit Provider Nurse Practitioner Family
DX: Z20.2 Contact with and (suspected) exposure to infections with a predominantly sexual mode of transmission (principal); R39.9 Unspecified symptoms and signs involving the genitourinary system
CPT/HCPCS: 99214

== ENCOUNTER 2023-08-24 08:47 | Outpatient (REF) | payer OTHER, SELFPAY ==
[2023-08-24 11:34] LABS: PLT CLUMP 1; SCAN SMEAR FLAG 1
[2023-08-24 12:23] LABS: Appearance Urine Cloudy; Color Urine Dark Yellow; Glucose Urine UA Negative (Negative); Leukocyte Esterase Urine Trace (Negative); Nitrite Urine Negative (Negative); UMIC TRIGGER UA YES; Urine Blood Moderate (2+) (Negative); Urine Ketones Trace mg/dL (Negative); Urine Protein Trace mg/dL (Neg-Trace)
[2023-08-24 12:36] LABS: HBS Num1 0.34 mIU/mL (0-7.99); HBc Num1 0.08 S/CO (0.00-0.79); HBsAGNum1 0.28 S/CO (0.00-0.99); HIV AB/AG Nonreactive (Nonreactive); HIV Num 1 0.05 S/CO (0.00-0.99); Hepatitis A Antibody IgM 0.21 Index (0-0.79); Hepatitis B Core Antibody Nonreactive (Nonreactive); Hepatitis B Surface Antigen Negative (Negative); ~HepC Num1 0.06 S/CO (0.00-0.79); ~Hepatitis A Antibody IgM Nonreactive (Nonreactive); ~Hepatitis B Surface Antibody NONREACTIVE (Nonreactive); ~Hepatitis C Antibody Nonreactive (Nonreactive)
[2023-08-24 12:38] LABS: Alanine Aminotransferase 10 U/L (0-31); Albumin Level 4.3 g/dL (3.5-5.0); Alkaline Phosphatase 40 U/L (39-117); Anion Gap 14 (12-20); Aspartate Amino Transferase 14 U/L (5-31); Bilirubin Total 0.6 mg/dL (0.0-1.0); Blood Urea Nitrogen 6 mg/dL (9-16); Calcium 9.8 mg/dL (8.4-10.2); Carbon Dioxide 25 mmol/L (22-29); Chloride 100 mmol/L (96-108); Cholesterol 239 mg/dL (<200); Estimated Glomerular Filt Rate > 60; Glucose Fasting 107 mg/dL (60-99); HDL Cholesterol 71 mg/dL (>40); LDL Cholesterol Calculated 152 mg/dL (<100); Potassium 3.6 mmol/L (3.3-5.1); Sodium 135 mmol/L (135-145); Total Protein 7.1 g/dL (6.5-8.0); Triglycerides 84 mg/dL (<150)
[2023-08-24 12:41] LABS: Bacteria Urine 1+ (None Seen); Hyaline Casts Urine 0-2 /LPF (0-2); RBC Urine >20 /HPF (0-2)
[2023-08-24 12:42] LABS: Folate 9.6 ng/mL (> or = 4.0); TSH reflex Free T4 1.16 uIU/mL (0.32-4.0); Vitamin B12 380 pg/mL (200-900); Vitamin D 25-OH Total 10.6 ng/mL (>30)
[2023-08-24 12:43] LABS: Syphilis Screen Nonreactive (Nonreactive)
[2023-08-24 12:47] LABS: Creatinine Urine 180.94 mg/dL
[2023-08-24 13:03] LABS: Basophils Percent Auto 0.7 % (0-2); Eosinophils Percent Auto 0.9 % (0-4); Hematocrit 39.4 % (37.0-47.0); Hemoglobin 13.6 g/dl (12.0-16.0); Imm Gran Abs Auto 0.01 X10*3/uL (0.00-0.03); Imm Gran Pct Auto 0.2 % (0.0-0.4); Lymphocytes Absolute Auto 1.3 X10*3/uL (1.2-4.9); Lymphocytes Percent Auto 31.2 % (20-40); MANUAL DIFF FLAG SCAN; Mean Corpuscular HGB Conc 34.5 g/dl (31.0-35.0); Mean Corpuscular Volume 92.7 fL (80.0-98.0); Mean Platelet Volume 11.8 fL (9.4-12.3); Monocytes Absolute Auto 0.3 X10*3/uL (0.1-1.2); Monocytes Percent Auto 7.7 % (2-11); Neutrophils Absolute Auto 2.6 x10*3/uL (2.0-8.3); Neutrophils Percent Auto 59.3 % (45-73); Platelet Count 293 X10*3/uL (160-400); Red Blood Count 4.25 X10*6/uL (4.20-5.50); Red Cell Distribution Width 12.1 % (11.0-16.0); White Blood Count 4.3 X10*3/uL (4.8-10.8)
[2023-08-24 13:05] LABS: SLIDE REVIEW VERIFIED
[2023-08-24 14:18] LABS: CT PCR NOT DETECTED (Not Detect.); NG PCR NOT DETECTED (Not Detect.)
[2023-08-25 09:46] LABS: BV Int Neg Control Negative (Negative); BV Int Pos Control Positive (Positive)
[2023-08-25 18:38] LABS: Herpes Simplex Type 2 IgG <0.90 index
[2023-08-25 20:19] LABS: Transglutaminase Ab IgG <1.0 U/mL; Transglutaminase IgA <1.0 U/mL
[2023-08-28 14:47] LABS: Vitamin D 25-OH, D2 <4 ng/mL; Vitamin D 25-OH, D3 9 ng/mL; Vitamin D 25-OH, Total 9 ng/mL (30-100)
== END 2023-08-24 08:48 | disposition home or self-care (01) ==
LOC: HO.WFDLDS 08:47
PROVIDERS: Family Medicine; Nurse Practitioner Family; Visit Provider Nurse Practitioner Family
DX: Z00.00 Encounter for general adult medical examination without abnormal findings (principal); E55.9 Vitamin D deficiency, unspecified; E53.8 Deficiency of other specified B group vitamins; R19.7 Diarrhea, unspecified; I10 Essential (primary) hypertension; R10.9 Unspecified abdominal pain; Z20.2 Contact with and (suspected) exposure to infections with a predominantly sexual mode of transmission
CPT/HCPCS: 0353U; 36415; 80053; 80061; 81001; 82043; 82306; 82570; 82607; 82746; 84443; 85025; 86364; 86695; 86696; 86704; 86706; 86709; 86780; 86803; 87340; 87389; 87480; 87510; 87660

== ENCOUNTER 2023-08-24 09:45 | Outpatient (REF) | payer OTHER, SELFPAY | END 2023-08-24 09:46 | disposition home or self-care (01) | LOC: HO.LNP 09:45 | PROVIDERS: Visit Provider Nurse Practitioner Family | DX: Z13.89 Encounter for screening for other disorder (principal) ==

== ENCOUNTER 2023-09-04 09:30 | Outpatient (AMB) | payer OTHER, SELFPAY ==
--- NOTE | 2023-09-04 09:45 | AM.OFFWIN_ITS ---
Intake Vital Signs 09/04/23 09:46 Height 5 ft 2 in BP 104/60 Blood Pressure Location Rt brachial Position Sitting Pulse 60 Pulse Source Pulse Oximeter Temp 98.2 F Temp Source Oral Pulse Oximetry (%) 98 Oxygen Delivery Method Room Air Intake Visit Reasons: EP sore throat Intake Note: pt is here for c/o sore throat 2-3 weeks Patient Tobacco Use Status: Never used Tobacco Allergies Seasonal Allergies Allergy (Intermediate, Verified 09/04/23 09:46) Itchy Eyes Penicillins Allergy (Verified 09/04/23 09:46) Hives Do you need a note to return to daycare/school/sports/work: Yes HPI HPI Comments History of Present Illness Details Patient presented to the walk-in today for sick visit Complaining of sore throat for last 2-3 weeks Denies cough, fevers, chills, sinus congestion, earache [facility] Medical History (Updated 09/04/23 @ 10:22 by Josephine Mcclain APRN, FORENSIC TECHNICIAN) External hemorrhoid Anxiety Depression Surgical History History of wisdom tooth extraction Family History Mother Diverticulitis Skin cancer Sister Skin cancer Social History Housing: Apartment Alcohol intake: never Patient Tobacco Use Status: Never used Tobacco e-Cigarette/Vaping Use: Never Used Substance Use Type: Marijuana service: No Current occupational status: employed Current occupational exposures/hazards: No Cognitive needs: No Hearing needs: No Vision needs: No Review of Systems Const All systems reviewed & are unremarkable except as noted in HPI and below Physical Exam Vital Signs: Last Vital Signs Temp 98.2 F 09/04/23 09:46 Pulse 60 09/04/23 09:46 BP 104/60 09/04/23 09:46 Pulse Ox 98 09/04/23 09:46 Oxygen Delivery Method Room Air 09/04/23 09:46 General: awake, alert, oriented. Answers questions appropriately. Fully engaged in examination. Skin: warm, dry, intact HEENT: Posterior pharynx without erythema or exudate. Moist oral mucosa. Sclera without icterus or injection. Cardiac: External chest normal in appearance. Respiratory: Resp even and unlabored. Neurological: Oriented to person, place, time and situation. Thought process intact. Psychiatric: Appropriate mood and affect. Good judgment and insight. Results AMB Rapid Strep AMB Rapid Strep Negative Last Edit by Morgan Adame CMA on 09/04/23 09 :57 Results Reviewed Results Reviewed: Laboratory Last Values Strep Scn Rapid Clinic Negative 09/04/23 09:56 Assessment & Plan Assessment & Plan (1) Pharyngitis: Code(s): J02.9 - Acute pharyngitis, unspecified Plan Pharyngitis, rapid strep negative. Likely related to seasonal allergies Reassurance provided Rest, drink plenty of fluids, tylenol or motrin as needed. Recommend taking OTC allergy medicine Follow up with pcp or in clinic for any new or worsening symptoms. Orders: Orders AMB Rapid Strep Screen Today Z13.9 - Encounter for screening, unspecified Coding Level of Care Code Est Pt Level 3 (88941) Diagnoses Pharyngitis J02.9
[2023-09-04 09:46] VITALS: BP 104/60; PULSE 60; TEMP 36.8; O2SAT 98
== END 2023-09-04 10:23 | disposition home or self-care (01) ==
PROVIDERS: PCP Family Medicine; Visit Provider Registered Nurse Emergency
DX: J02.9 Acute pharyngitis, unspecified (principal)
CPT/HCPCS: 87880; 99213

== ENCOUNTER 2023-09-26 08:57 | Outpatient (AMB) | payer OTHER, SELFPAY ==
--- NOTE | 2023-09-26 09:03 | A.OFFPC_ITS ---
Vital Signs 09/26/23 09:06 Height 5 ft 2 in Weight 108 lb 6 oz BMI 19.8 BP 109/60 Blood Pressure Location Rt brachial Position Sitting Respiration 14 Pulse 69 Pulse Source Pulse Oximeter Temp 98.4 F Temp Source Temporal Artery Scan Intake Visit Reasons: Bacterial Vaginosos symptoms have returned Intake Note: Ongoing bacterial vaginosis symptoms Allergies Seasonal Allergies Allergy (Intermediate, Verified 09/26/23 09:23) Itchy Eyes Penicillins Allergy (Verified 09/26/23 09:23) Hives Medication List - Last Reconciled 09/26/23 by Sara Roldan, KNITTING MACHINE OPERATOR HELPER-BC cholecalciferol (vitamin D3) 1,250 mcg PO QWEEK digestive enzymes 1 cap PO DAILY fexofenadine (Tri Allergy) 180 mg PO DAILY 90 days hydrocortisone 2.5% (Proctosol HC) 1 appl MI BID-QID PRN magnesium oxide 1,000 mg PO DAILY pepsin (bulk) (Pepsin 3,000 Digestion powder) ea miscellaneous Tobacco use date assessed: 09/26/23 Dental Screening Dental Screen Date: 06/01/23 HPI HPI Comments History of Present Illness Details Here today w c/o recurrent BV sx Leaving for vacation wants treatment before she leaves No concern for STD No urinary complaints having lower abd cramping Not having sex right now Used metrogel in past + relief using probiotics and boric acid supps PFSH Medical History (Updated 09/04/23 @ 10:22 by Josephine Mcclain, SENIOR DIRECTOR INSIGHT, WARP HANGER) External hemorrhoid Anxiety Depression Surgical History History of wisdom tooth extraction Family History Mother Diverticulitis Skin cancer Sister Skin cancer Social History Housing: Apartment Alcohol intake: never Patient Tobacco Use Status: Never used Tobacco e-Cigarette/Vaping Use: Never Used Substance Use Type: Marijuana service: No Current occupational status: employed Current occupational exposures/hazards: No Cognitive needs: No Hearing needs: No Vision needs: No Questionnaire SIMRAN-7 AMB Questionnaire SIMRAN-7 Date SIMRAN - 7 assessed: 06/01/23 Source: Developed by Drs. Bassam Soriano, Brie B.Aurelio Allen and colleagues, with an educational hossein from [employer]. Review of Systems Const All systems reviewed & are unremarkable except as noted in HPI and below Physical exam (Primary Care) Vital Signs: Last Vital Signs Temp 98.4 F 09/26/23 09:06 Pulse 69 09/26/23 09:06 Resp 14 09/26/23 09:06 BP 109/60 09/26/23 09:06 BMI result Body Mass Index 19.8 Tobacco/Smoking Status: Tobacco use Status Tobacco use date assessed 09/26/23 09/26/23 09:08 Patient Tobacco Use Status Never used Tobacco 09/26/23 09:03 e-Cigarette/Vaping Use Never Used 09/26/23 09:03 Const Other: awake alert oriented MMM NO CVAT Abd benign Assessment and Plan Assessment & Plan (1) Bacterial vaginitis: Code(s): N76.0 - Acute vaginitis; B96.89 - Other specified bacterial agents as the cause of diseases classified elsewhere Medications: New metronidazole 0.75%(37.5mg/5gram) 1 appful vaginal DAILY 5 days 70 grams 1RF Patient Instructions: Use metrogel as directed If recurrence develops discussed suppressive therapy with 2/week metrogel for 6 months. RTO as needed Coding Level of Care Code Est Pt Level 3 (50209) Diagnoses Bacterial vaginitis N76.0; B96.89
[2023-09-26 09:06] VITALS: BP 109/60; PULSE 69; RESP 14; TEMP 36.9; BMI 19.8
== END 2023-09-26 11:58 | disposition home or self-care (01) ==
PROVIDERS: PCP Family Medicine; Visit Provider Nurse Practitioner Family
DX: N76.0 Acute vaginitis (principal); B96.89 Other specified bacterial agents as the cause of diseases classified elsewhere
CPT/HCPCS: 99213

== ENCOUNTER 2023-12-28 13:40 | Outpatient (AMB) | payer OTHER, SELFPAY ==
--- NOTE | 2023-12-28 13:58 | A.OFFPC_ITS ---
Vital Signs 12/28/23 14:05 Height 5 ft 2 in Weight 108 lb 8 oz BMI 19.8 BP 102/55 L Blood Pressure Location Lt brachial Position Sitting Respiration 12 Pulse 67 Pulse Source Pulse Oximeter Temp 98.1 F Temp Source Temporal Artery Scan Pulse Oximetry (%) 100 Oxygen Delivery Method Room Air Intake Visit Reasons: anxiety/depression medication Intake Note: mental health check Allergies Seasonal Allergies Allergy (Intermediate, Verified 12/28/23 13:59) Itchy Eyes Tobacco use date assessed: 09/26/23 Dental Screening Dental Screen Date: 06/01/23 HPI anxiety/depression medication HPI Details 38 y/o female presents to f/u anxiety/de pression. PHQ-9 10, SIMRAN-7 14 today. She is requesting a script for lexapro and wants to get back on it. She had previously been on 20mg for 2 or 3 years. She felt she was well controlled on this and had stopped it as she did not want to be on it anymore. She currently has a therapist and sees them every 3 weeks. She notes she has used klonipin in the past. She denies any SI/HI. Has complaints of an allergic conjunctivitis. Has been taking claritin/zyrtec with no relief. [facility] Medical History (Updated 12/28/23 @ 14:36 by Ezra Montse) External hemorrhoid Anxiety Depression Surgical History History of wisdom tooth extraction Family History Mother Diverticulitis Skin cancer Sister Skin cancer Social History Housing: Apartment Alcohol intake: never Patient Tobacco Use Status: Never used Tobacco e-Cigarette/Vaping Use: Never Used Substance Use Type: Marijuana service: No Current occupational status: employed Current occupational exposures/hazards: No Cognitive needs: No Hearing needs: No Vision needs: No Questionnaire PHQ-9 Over the last 2 weeks, how often have you been bothered by any of the following problems? 1. Little interest or pleasure in doing things: several days 2. Feeling down, depressed, or hopeless: nearly every day 3. Trouble falling or staying asleep, or sleeping too much: nearly every day 4. Feeling tired or having little energy: nearly every day 5. Poor appetite or overeating: not at all 6. Feeling bad about yourself - or that you are a failure or have let yourself or your family down: not at all 7. Trouble concentrating on things, such as reading the newspaper or watching television: not at all 8. Moving or speaking so slowly that other people could have noticed. Or the opposite - being so fidgety or restless that you have been moving around a lot more than usual: not at all 9. Thoughts that you would be better off or of hurting yourself in some way: not at all Total score: 10 Depression Screening Interpretation: Positive Depression Screening Done: Yes 26780 - PHQ-9 Billing: Yes Source: Developed by Drs. Bassam Soriano, Brie Varma, Aurelio Scott and colleagues, with an educational hossein from [email or web address]. SIMRAN-7 AMB Questionnaire SIMRAN-7 Date SIMRAN - 7 assessed: 12/28/23 Feeling nervous, anxious, or on edge: 3 = Nearly every day Not being able to stop or control worryin = Nearly every day Worrying too much about different things: 3 = Nearly every day Trouble relaxin = Several days Being so restless that it is hard to sit still: 0 = Not at all Becoming easily annoyed or irritable: 3 = Nearly every day Feeling afraid as if something awful might happen: 1 = Several days Total SIMRAN-7 score (0-4 normal; 5-9 mild; 10-14 moderate; 15-21 severe): 14 Source: Developed by Drs. Bassam Soriano, Brie Varma, Aurelio Scott and colleagues, with an educational hossein from [email or web address]. SIMRAN-7 Assessment Billing SIMRAN-7 Assessment Tool: SIMRAN-7 Assessment 25421 Physical exam (Primary Care) Vital Signs: Last Vital Signs Temp 98.1 F 12/28/23 14:05 Pulse 67 12/28/23 14:05 Resp 12 12/28/23 14:05 BP 102/55 L 12/28/23 14:05 Pulse Ox 100 12/28/23 14:05 Oxygen Delivery Method Room Air 12/28/23 14:05 BMI result Body Mass Index 19.8 Tobacco/Smoking Status: Tobacco use Status Tobacco use date assessed 09/26/23 12/28/23 14:08 Patient Tobacco Use Status Never used Tobacco 12/28/23 14:08 e-Cigarette/Vaping Use Never Used 12/28/23 14:08 PHQ-9: PHQ-9 Score PHQ-9: Total score 10 12/28/23 14:15 Depression Screening Interpretation: Positive Assessment and Plan Assessment & Plan (1) Anxiety with depression: Code(s): F41.8 - Other specified anxiety disorders Plan: Worsened?anxiety?and?depression. She?had?been?on?Lexapro?20?mg?daily. She?will?start?with?10?mg?daily?and?titrate?up?to?20?mg?daily?as?able. She?has?a?therapist?whom?she?sees?3?times?a?month.??Encouraged?her?to?talk?to?he r?therapist?about?seeing?her?more?frequently?for?the?time?being. Will?follow-up?in?about?a?month?and?consider? adjusting?hydroxyzine?or?switching?it. (2) Allergic conjunctivitis: Code(s): H10.10 - Acute atopic conjunctivitis, unspecified eye Plan: Gave?her?a?script?for?Pataday Continue?fexofenadine Continue?nasal?steroid Medications: New escitalopram oxalate (Lexapro) 20 mg (2 x 10 mg) PO DAILY 30 days 60 tabs 3RF hydroxyzine HCl 50 mg PO DAILY 30 days PRN 30 tabs 0RF anxiety/insomnia olopatadine 0.7% (Pataday Once Daily Relief) 1 drp ophthalmic (eye) DAILY 30 days PRN 5 mL 3RF itching Coding Level of Care Code Est Pt Level 3 (61861) Diagnoses Anxiety with depression F41.8 Allergic conjunctivitis H10.10 Additional Codes SIMRAN-7 Assessment Billing - SIMRAN-7 Assessment Tool: SIMRAN-7 Assessment 24728 ([id number])
[2023-12-28 14:05] VITALS: BP 102/55; PULSE 67; RESP 12; TEMP 36.7; O2SAT 100; BMI 19.8
== END 2023-12-28 14:43 | disposition home or self-care (01) ==
PROVIDERS: PCP Family Medicine; Visit Provider Family Medicine
DX: F41.8 Other specified anxiety disorders (principal); H10.10 Acute atopic conjunctivitis, unspecified eye
CPT/HCPCS: 96127; 99213

== ENCOUNTER 2024-02-09 09:44 | Outpatient (AMB) | payer OTHER, SELFPAY ==
--- NOTE | 2024-02-09 09:54 | A.OFFPC_ITS ---
Vital Signs 02/09/24 09:57 Height 5 ft 2 in Weight 105 lb 6 oz BMI 19.3 BP 103/61 Blood Pressure Location Rt brachial Position Sitting Respiration 14 Pulse 72 Pulse Source Pulse Oximeter Temp 97.9 F Temp Source Temporal Artery Scan Pulse Oximetry (%) 100 Oxygen Delivery Method Room Air Intake Visit Reasons: f/u anxiety/depression Intake Note: f/u anxiety/depression Allergies Seasonal Allergies Allergy (Intermediate, Verified 02/09/24 09:55) Itchy Eyes Medication List - Last Reconciled 02/09/24 by Chad Mix MD digestive enzymes 1 cap PO DAILY escitalopram oxalate (Lexapro) 20 mg (2 x 10 mg) PO DAILY 30 days fexofenadine (Tri Allergy) 180 mg PO DAILY 90 days hydroxyzine HCl 50 mg PO DAILY PRN 30 days magnesium oxide 1,000 mg PO DAILY metronidazole 0.75%(37.5mg/5gram) 1 appful vaginal DAILY 5 days olopatadine 0.7% (Pataday Once Daily Relief) 1 drp ophthalmic (eye) DAILY PRN 30 days pepsin (bulk) (Pepsin 3,000 Digestion powder) ea miscellaneous Tobacco use date assessed: 09/26/23 Dental Screening Dental Screen Date: 06/01/23 HPI f/u anxiety/depression HPI Details 38 y/o female presents to f/u anxiety/de pression. She is on lexapro 20mg daily, hydroxyzine 50mg p.r.n. PHQ-9 14, SIMRAN-7 7 today. Has a therapist. She reports she is hesitant about going back to a particular job and notes SI if she is to go back. She denies SI/HI today. She reports constipation/hemorrhoids. Has been drinking a good amount of water along with bowel supplements. HPI Comments History of Present Illness Details Documentation assistance for Chad Mix MD, was provided by Ezra Montes,? Outside Industrial Sales Representative on 02/09/2024 at 10:31 AM EST. I, Dr. Mix, have read, observed, and verified documentation. [facility] Medical History (Updated 02/09/24 @ 10:48 by Chad Mix MD) External hemorrhoid Anxiety Depression Surgical History History of wisdom tooth extraction Family History Mother Diverticulitis Skin cancer Sister Skin cancer Social History Housing: Apartment Alcohol intake: never Patient Tobacco Use Status: Never used Tobacco e-Cigarette/Vaping Use: Never Used Substance Use Type: Marijuana service: No Current occupational status: employed Current occupational exposures/hazards: No Cognitive needs: No Hearing needs: No Vision needs: No Questionnaire PHQ-9 Over the last 2 weeks, how often have you been bothered by any of the following problems? 1. Little interest or pleasure in doing things: more than half the days 2. Feeling down, depressed, or hopeless: more than half the days 3. Trouble falling or staying asleep, or sleeping too much: nearly every day 4. Feeling tired or having little energy: more than half the days 5. Poor appetite or overeating: more than half the days 6. Feeling bad about yourself - or that you are a failure or have let yourself or your family down: several days 7. Trouble concentrating on things, such as reading the newspaper or watching television: several days 8. Moving or speaking so slowly that other people could have noticed. Or the o pposite - being so fidgety or restless that you have been moving around a lot more than usual: several days 9. Thoughts that you would be better off or of hurting yourself in some way: not at all Total score: 14 Depression Screening Interpretation: Positive Depression Screening Done: Yes 77391 - PHQ-9 Billing: Yes Source: Developed by Drs. Bassam Soriano, Brie Varma, Aurelio Scott and colleagues, with an educational hossein from [employer]. Thrive Questionnaire Date Thrive assessed: 02/06/24 I am a: Patient What is your living situation today?: I have a steady place to live Within the past 12 months, did the food you bought not last and you didn't have the money to get more?: Never true Within the past 12 months, did you worry whether your food would run out before you got money to buy more?: Never true Do you have trouble paying for medicines?: No Do you have trouble getting transportation to medical appointments?: No Do you have trouble paying your heating and electricity bill?: No Do you have trouble taking care of your child, family member or friend?: No Do you have trouble with day-to-day activities such as bathing, preparing meals, shopping, managing finances, etc.?: No Are you currently unemployed and looking for a job?: No Are you interested in more education?: No Please select the resources that you would like help with: None Currently or been in a relationship where the following occur: I choose not to answer THRIVE Score: 0 AUDIT C Alcohol Use Questionnaire (AUDIT-C) 1. How often do you have a drink containing alcohol?: Never Total Score: 0 SIMRAN-7 AMB Questionnaire SIMRAN-7 Date SIMRAN - 7 assessed: 02/09/24 Feeling nervous, anxious, or on edge: 1 = Several days Not being able to stop or control worryin = Several days Worrying too much about different things: 1 = Several days Trouble relaxin = Several days Being so restless that it is hard to sit still: 1 = Several days Becoming easily annoyed or irritable: 1 = Several days Feeling afraid as if something awful might happen: 1 = Several days Total SIMRAN-7 score (0-4 normal; 5-9 mild; 10-14 moderate; 15-21 severe): 7 Source: Developed by Drs. Bassam Soriano, Brie Varma, Aurelio Scott and colleagues, with an educational hossein from [employer]. SIMRAN-7 Assessment Billing SIMRAN-7 Assessment Tool: SIMRAN-7 Assessment 56023 Review of Systems GI Reports constipation Psych Reports anxiety and Reports depression Physical exam (Primary Care) Vital Signs: Last Vital Signs Temp 97.9 F 02/09/24 09:57 Pulse 72 02/09/24 09:57 Resp 14 02/09/24 09:57 BP 103/61 02/09/24 09:57 Pulse Ox 100 02/09/24 09:57 Oxygen Delivery Method Room Air 02/09/24 09:57 BMI result Body Mass Index 19.3 Tobacco/Smoking Status: Tobacco use Status Tobacco use date assessed 09/26/23 02/09/24 09:56 Patient Tobacco Use Status Never used Tobacco 02/09/24 09:56 e-Cigarette/Vaping Use Never Used 02/09/24 09:56 PHQ-9: PHQ-9 Score PHQ-9: Total score 14 02/09/24 10:29 Depression Screening Interpretation: Positive Thrive Assessment: Date of Thrive Assessment Date Thrive assessed 02/06/24 02/09/24 09:56 Currently or been in a relationship where the following occur: I choose not to answer Coding Level of Care Code Est Pt Level 4 (72817) Diagnoses Anxiety with depression F41.8 Constipation K59.00 Hemorrhoids, unspecified hemorrhoid type K64.9 Hemorrhoid type: unspecified Additional Codes SIMRAN-7 Assessment Billing - SIMRAN-7 Assessment Tool: SIMRAN-7 Assessment 76741 ([id number]) Assessment & Plan Assessment & Plan (1) Anxiety with depression: Code(s): F41.8 - Other specified anxiety disorders Category: Medical Plan: Ongoing?anxiety?and?depression Patient?did?not?start?escitalopram?and?does?not?want?to?do?so. We?also?discussed?additional?medications?such?as?buspirone?and?Abilify. Patient?will?try?buspirone.??She?can?stop?hydroxyzine?as?well?which?was?worsenin g?her?constipation. She?would?li ke?to?be?considered?in?a?program?for?ketamine?treatment.??Will?make?a?referral?t o?[facility]?psychiatric?consult. Continue?close?follow-up?with?therapist (2) Constipation: Code(s): K59.00 - Constipation, unspecified Category: Medical Plan: Chronic?constipation.??Patient?is?on?multiple?medications Likely?has?IBS She?is?already?drinking?copious?amounts?of?water?and?using?a?soluble?fiber?table t. She?is?also?taking?senna?and?other?bowel?supplements. Referred?to?Gastroenterology (3) Hemorrhoids: Code(s): K64.9 - Unspecified hemorrhoids Category: Medical Qualifiers: Hemorrhoid type: unspecified Qualified Code(s): K64.9 - Unspecified hemorrhoids Plan: Keep?stools?soft-see?above Orders: Referrals Psychiatry Outpatient Consultation Service F41.8 - Other specified anxiety disorders BRAKE LINING MAKER Referral N89.8 - Other specified noninflammatory disorders of vagina, Z12.4 - Encounter for screening for malignant neoplasm of cervix Gastroenterology Referral K59.00 - Constipation, unspecified Medications: New metronidazole 500 mg PO BID 5 days 10 tabs 0RF fluconazole 150 mg PO Q3D 2 tabs 0RF buspirone 5 mg PO BID 30 days 60 tabs 2RF Discontinued hydroxyzine HCl Discontinued Reason: Doctor's Order 50 mg PO DAILY 30 days PRN 30 tabs 0RF anxiety/insomnia
[2024-02-09 09:57] VITALS: BP 103/61; PULSE 72; RESP 14; TEMP 36.6; O2SAT 100; BMI 19.3
== END 2024-02-09 16:28 | disposition home or self-care (01) ==
PROVIDERS: PCP Family Medicine; Visit Provider Family Medicine
DX: F41.8 Other specified anxiety disorders (principal); K59.00 Constipation, unspecified; K64.9 Unspecified hemorrhoids

== ENCOUNTER → 2024-02-09 09:44 | Outpatient (BNVA) | payer OTHER, SELFPAY | PROVIDERS: PCP Family Medicine; Visit Provider Family Medicine | DX: F41.8 Other specified anxiety disorders (principal); K59.09 Other constipation; K64.9 Unspecified hemorrhoids; N89.8 Other specified noninflammatory disorders of vagina | CPT/HCPCS: 96127 ==

== ENCOUNTER 2024-02-26 08:58 | Outpatient (AMB) | payer OTHER, SELFPAY ==
--- NOTE | 2024-02-26 09:10 | MHC.PC.OV ---
Vital Signs 02/26/24 09:13 Height 5 ft 2 in Weight 107 lb 4 oz BMI 19.6 BP 97/57 L Blood Pressure Location Rt brachial Position Sitting Respiration 14 Pulse 80 Pulse Source Pulse Oximeter Temp 98.6 F Temp Source Temporal Artery Scan Pulse Oximetry (%) 97 Oxygen Delivery Method Room Air Intake Visit Reasons: CPE Follow up labs Intake Note: Anxiety and depression Allergies Seasonal Allergies Allergy (Intermediate, Verified 02/26/24 09:11) Itchy Eyes Tobacco use date assessed: 09/26/23 Dental Screening Dental Screen Date: 06/01/23 HPI CPE Follow up labs HPI Details 38 y/o female presents for a CPE with f/u labs and health maintenance. Also f/u anxiety/depression. Trialing buspirone for anxiety. Had referred her to [facility] [place] psychiatric consult team. No recent labs to review. Cholesterol levels had been high from labs drawn in August. She notes no one has contacted her yet from the psychiatric consult team. She notes buspirone has been working well for her. Notes intermittent wheezing and does have hx of allergies. She reports constipation/?IBS. HPI Comments History of Present Illness Details Documentation assistance for Chad Mix MD, was provided by Ezra Montes,? Imaging Engineer on 02/26/2024 at 9:43 AM EST. I, Dr. Mix, have read, observed, and verified documentation. [facility] Medical History (Updated 02/26/24 @ 09:43 by Ezra Montes) External hemorrhoid Anxiety Depression Surgical History History of wisdom tooth extraction Family History Mother Diverticulitis Skin cancer Sister Skin cancer Social History Housing: Apartment Alcohol intake: never Patient Tobacco Use Status: Never used Tobacco e-Cigarette/Vaping Use: Never Used Substance Use Type: Marijuana service: No Current occupational status: employed Current occupational exposures/hazards: No Cognitive needs: No Hearing needs: No Vision needs: No Questionnaire Thrive Questionnaire Date Thrive assessed: 02/06/24 I am a: Patient What is your living situation today?: I have a steady place to live Within the past 12 months, did the food you bought not last and you didn't have the money to get more?: Never true Within the past 12 months, did you worry whether your food would run out before you got money to buy more?: Never true Do you have trouble paying for medicines?: No Do you have trouble getting transportation to medical appointments?: No Do you have trouble paying your heating and electricity bill?: No Do you have trouble taking care of your child, family member or friend?: No Do you have trouble with day-to-day activities such as bathing, preparing meals, shopping, managing finances, etc.?: No Are you currently unemployed and looking for a job?: No Are you interested in more education?: No Please select the resources that you would like help with: None Currently or been in a relationship where the following occur: I choose not to answer THRIVE Score: 0 SIMRAN-7 AMB Questionnaire SIMRAN-7 Date SIMRAN - 7 assessed: 02/09/24 Source: Developed by Drs. Bassam Soriano, Brie Varma, Aurelio Scott and colleagues, with an educational hossein from [employer]. Review of Systems Const Denies chills, Denies fatigue, Denies fever(s), Denies headache(s) and Denies weakness Eyes Denies change in vision ENT Denies dizziness and Denies headache(s) Card Denies dyspnea Resp Denies cough, Denies dyspnea, Denies wheezing and Denies other (shortness of breath) GI Denies abdominal pain, Denies melena, Denies hematochezia, Denies change in bowel habits, Reports constipation, Denies dyspepsia and Denies nausea Denies hematuria and Denies dysuria Musc Denies numbness and Denies tingling Skin/Breast Denies rash, Denies unusual bruising and Denies wounds Neuro Denies dizziness, Denies headache(s), Denies numbness, Denies Sensory deficit (Neuro), Denies tingling and Denies weakness Psych Denies anxiety and Denies depression Endo Denies fatigue Yuri/Lymph Denies easy bleeding and Denies easy bruising Aller/Immun Denies wheezing Physical exam (Primary Care) Vital Signs: Last Vital Signs Temp 98.6 F 02/26/24 09:13 Pulse 80 02/26/24 09:13 Resp 14 02/26/24 09:13 BP 97/57 L 02/26/24 09:13 Pulse Ox 97 02/26/24 09:13 Oxygen Delivery Method Room Air 02/26/24 09:13 BMI result Body Mass Index 19.6 Tobacco/Smoking Status: Tobacco use Status Tobacco use date assessed 09/26/23 02/26/24 09:17 Patient Tobacco Use Status Never used Tobacco 02/26/24 09:17 e-Cigarette/Vaping Use Never Used 02/26/24 09:17 Thrive Assessment: Date of Thrive Assessment Date Thrive assessed 02/06/24 02/26/24 09:17 Currently or been in a relationship where the following occur: I choose not to answer Const General: well developed; No acute distress Nutritional Appearance: well nourished Orientation/consciousness: patient oriented x3 HENMT Head: Yes normocephalic and Yes atraumatic Ears: hearing grossly normal bilaterally and TM's normal bilaterally General nose exam: Normal external nose present and Normal nares present Mouth: Normal oral and palatal mucosa present and moist mucous membranes Teeth and gingiva: dentition normal Throat: Yes posterior oropharynx normal Eyes General: appearance normal, both eyes and all related structures Pupils: Equal, round and reactive pupils present EOM: EOMs intact bilaterally Neck Neck: Yes normal visual inspection, Yes no lymphadenopathy and Yes trachea midline Thyroid: Thyroid normal Carotids: no bruits Lymphatic: no lymphadenopathy noted Chest Chest palpation & inspection: normal inspection of the chest Resp Effort & Inspection: normal respiratory effort Auscultation: clear to auscultation bilaterally Cardio Rate: regular rate Rhythm: regular rhythm Heart sounds: S1 normal heart sound present, S2 normal heart sound present, no gallops, no murmurs and no rubs Bruits: no abdominal aortic bruits and no carotid bruits GI Palpation (GI): No Abdominal aortic bruit present, Soft to palpation, nontender, No hepatosplenomegaly present and No Rebound tenderness present Auscultation: normal bowel sounds General: Yes no CVA tenderness Back/Spine/Pelvis Back: no CVA tenderness Cervical Spine: cervical ROM normal and No Cervical spine tenderness Thoracic/Lumbar Spine: thoraco-lumbar ROM normal, No pain with thoraco-lumbar ROM, No thoracic spinal tenderness and No lumbar spinal tenderness Skin Lesions: no lesions Rashes: no rashes Trauma: no lacerations or abrasions Wounds: no wounds Nails: normal Neuro General: patient oriented x3 and gait normal Cranial nerves: Yes Equal, round and reactive pupils present Cognition (Neuro): normal cognition Gait exam (Neuro): Normal gait present Motor exam (neuro): 5/5 motor strength present throughout Sensory Exam: No Sensory deficit (Neuro) Deep tendon reflexes (DTR's): Right patellar reflex intensity grade: 2+ and Left patellar reflex intensity grade: 2+ Extrem General: Yes normal to inspection and No edema Psych Appearance: grossly normal Affect: normal affect Attitude: cooperative Thought process: Normal thought process present Coding Level of Care Code Est Pt Level 3 (80646) Est Pt Prev Care 18-39y(67475) Diagnoses Adult general medical exam Z00.00 Allergies T78.40XA IBS (irritable bowel syndrome) K58.9 Allergic conjunctivitis H10.10 Hyperlipidemia E78.5 Anxiety with depression F41.8 Screening for cervical cancer Z12.4 Assessment & Plan Assessment & Plan (1) Adult general medical exam: Code(s): Z00.00 - Encounter for general adult medical examination without abnormal findings Category: Medical Plan: 38-year-old?female?presents?for?complete?physical?exam Encouraged?healthy?diet (2) Allergies: Code(s): T78.40XA - Allergy, unspecified, initial encounter Category: Medical Plan: Continue?Tri Nasal?steroid?and?Neti?pot Also?has?allergic?conjunctivitis. Referred?to?Ophthalmology?at?patient?request (3) IBS (irritable bowel syndrome): Code(s): K58.9 - Irritable bowel syndrome, unspecified Category: Medical Plan: Patient?has?tried?numerous?remedies?and?is?hydrating?well. She?has?seen?gastroenterology?in?the?past?and?I?encouraged?her?to?follow-up?with?them (4) Allergic conjunctivitis: Code(s): H10.10 - Acute atopic conjunctivitis, unspecified eye Category: Medical Plan: As?above,?patient?is?referred (5) Hyperlipidemia: Code(s): E78.5 - Hyperlipidemia, unspecified Category: Medical Plan: Patient?does?not?want?to?use?a?statin?medication We?discussed diet?low?in?saturated?fats?and?cholesterol We?discussed?Zetia We?discussed?alternatives?such?as?red?yeast?rice?and?lecithin She?would?like?to?work?at?diet?and?will?consider?alternative?supplements. 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
[2024-02-26 09:13] VITALS: BP 97/57; PULSE 80; RESP 14; TEMP 37; O2SAT 97; BMI 19.6
== END 2024-02-26 09:50 | disposition home or self-care (01) ==
LOC: HO.HMCFM 08:59
PROVIDERS: PCP Family Medicine; Visit Provider Family Medicine
DX: Z00.00 Encounter for general adult medical examination without abnormal findings (principal); T78.40XA Allergy, unspecified, initial encounter; K58.9 Irritable bowel syndrome, unspecified; E78.5 Hyperlipidemia, unspecified; F41.8 Other specified anxiety disorders

== ENCOUNTER → 2024-02-26 08:58 | Outpatient (BNVA) | payer OTHER, SELFPAY | PROVIDERS: PCP Family Medicine; Visit Provider Family Medicine ==

== ENCOUNTER 2024-04-01 15:35 | Outpatient (AMB) | payer OTHER, SELFPAY ==
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
== END 2024-04-01 17:01 | disposition home or self-care (01) ==
LOC: HO.HOP 15:35
PROVIDERS: PCP Family Medicine; Visit Provider Clinical Nurse Specialist Psychiatric/Mental Health
DX: F41.1 Generalized anxiety disorder (principal); F41.8 Other specified anxiety disorders
CPT/HCPCS: 90792

== ENCOUNTER → 2024-04-01 15:35 | Outpatient (BNVA) | payer OTHER, SELFPAY | PROVIDERS: PCP Family Medicine; Visit Provider Clinical Nurse Specialist Psychiatric/Mental Health | DX: F41.1 Generalized anxiety disorder (principal); F41.8 Other specified anxiety disorders; Z79.899 Other long term (current) drug therapy | CPT/HCPCS: 90792 ==

== ENCOUNTER 2024-04-11 10:31 | Outpatient (AMB) | payer SELFPAY ==
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
[2024-04-11 10:51] VITALS: BP 90/60; PULSE 68; RESP 14; TEMP 37; O2SAT 99; BMI 19.6
== END 2024-04-11 12:17 | disposition home or self-care (01) ==
PROVIDERS: PCP Family Medicine; Visit Provider Family Medicine
DX: S13.9XXA Sprain of joints and ligaments of unspecified parts of neck, initial encounter (principal); S06.0XAA Concussion with loss of consciousness status unknown, initial encounter; V89.2XXA Person injured in unspecified motor-vehicle accident, traffic, initial encounter; D48.5 Neoplasm of uncertain behavior of skin

== ENCOUNTER → 2024-04-11 10:31 | Outpatient (BNVA) | payer OTHER, SELFPAY | PROVIDERS: PCP Family Medicine; Visit Provider Family Medicine | DX: S13.9XXA Sprain of joints and ligaments of unspecified parts of neck, initial encounter (principal); S06.0XAA Concussion with loss of consciousness status unknown, initial encounter; D48.5 Neoplasm of uncertain behavior of skin; V89.2XXA Person injured in unspecified motor-vehicle accident, traffic, initial encounter; Y93.9 Activity, unspecified; Y92.9 Unspecified place or not applicable; Y99.9 Unspecified external cause status | CPT/HCPCS: 99212 ==

== ENCOUNTER 2024-06-24 16:25 | Outpatient (AMB) | payer OTHER, SELFPAY ==
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
--- OUTSIDE RECORDS SUMMARY | 2024-06-24 18:54 | XMS_ITS | Continuity of Care Document ---
Author Organization [facility] Address [address] [place] [address] Phone Care Team Providers Care File Clerk Name Role Phone Unavailable Unavailable Unavailable Procedures Procedure Date Sealant Per Tooth Treatment Plan Completed Resin-based Composite - 1 Surface, Poste rior Treatment Plan Completed Resin-based Composite - 1 Surface, Poste rior Prophylaxis Adult Toothbrush Sample Floss Sample Oral Hygiene Instruction >5 Comprehensive Oral Evaluation 2 Treatment Plan Initiated Bitewings Four Films Limit Oral Eval-prob Focused Treatment Plan In Progress Attending Approval Code Consult (dx Serv By Non-tx Allyssa 10 Attending Approval Code Prophylaxis Adult Toothbrush Sample Toothpaste Sample Floss Sample Perio Charting Periodic Oral Examination Recare Needs Only Resin-based Composite - 1 Surface, Poste rior Resin-based Composite -2 Surfaces, Poste rior Resin-based Composite - 1 Surface, Poste rior Resin-based Composite - 1 Surface, Poste rior Prophylaxis Adult Application of Topical Fluoride Varnish Toothbrush Sample Toothpaste Sample Floss Sample Comprehensive Oral Evaluation 0 Intraor Complt (incl Bitewings 10 Advance Directives Directive Yes / No Effective Date File Name No Information Encounters Encounter Description Practice Location Reason(s) For Visit Diagnoses Date Provider Providers Copied on Encounter [address], [id number], tel:[phone] [facility] [address], [id number], [place] tel:[phone] [facility] 2 [place] [facility]. [address] [place] [address], [id number], [place]. tel:[phone], [id number], tel:[phone] [facility] 2 No Information [address], [id number], [place] tel:[phone] [facility] No Information Mar- 0 No Information [address], [id number], [place] tel:[phone] [facility] No Information 0 No Information [address], [id number], [place] tel:[phone] [facility] No Information 0 No Information [address], [id number], [place] tel:[phone] [facility] No Information 0 No Information [address], [id number], [place] tel:[phone] [facility] No Information May-2 4-201 0 No Information Family History Family Member Type Diagnosis Age At Onset No Information Payers Payer name Insurance type Covered libertarian ID Demar balbuena(s) D [facility] CI [id number] Social History Type Description Quantity Date Captured Comments Sex Female Smoking Status No Information Chief Complaint And Reason For Visit No Information Reason For Referral Reason For Referral No Information History Of Present Illness Encounter Date Complaint History Of Prese nt Illness No Information Functional Status Date Functional Assessmen t No Information Instructions Date Instruction Additional Infor mation No Information Assessments Type Assessment Date No Information Patient Care Teams Name Effective Dates (start - stop) Status Members No Information
--- OUTSIDE RECORDS SUMMARY | 2024-06-24 18:54 | XMS_ITS | Clinical Summary ---
Author Organization [address] [address] Phone Care Team Providers Care Intelligence Specialist Name Role Phone No, Pcp (Do Not Change Name) Primary Care Provid er Unavailable Social History Tobacco Use Types Packs/Day Years Used Date Smoking Tobacco: Never Assessed Comments Unknown Sex and Gender Information Value Date Recorded Sex Assigned at Not on file Legal Sex Female 9:15 PM EDT Gender Identity Not on file Sexual Orientation Not on file Last Filed Vital Signs Vital Sign Reading Time Taken Comments Blood Pressure 104/76 09/27/2020 6:03 AM EDT Pulse 70 09/27/2020 6:03 AM EDT Temperature 36.5 ??C (97.7 ??F) 09/27/2020 6:03 AM ED T Respiratory Rate 16 09/27/2020 6:03 AM EDT Oxygen Saturation 98% 09/27/2020 6:03 AM EDT Inhaled Oxygen Concentration - - Weight - - Height - - Body Mass Index - - Plan of Treatment Health Maintenance Due Date Last Done Comments HIV screening 1998 Hepatitis C screening 2003 Cervical cancer screening 2006 Influenza vaccine 11/23/2023 01/30/2020 Covid-19 vaccine series ( season) 2023 Tetanus adult (Td q 10,TDAP once) 07/01/2027 018 RSV Discussion (1 - 1-dose 7 5+ series) 2060 Meningococcal Vaccine Aged Out No jin phil eligible based on patient's age to complete this topic Pneumococcal Vaccine (2 - 49 years) Aged Out No longer eligible b ased on patient's age to complete this topic Insurance [facility] BS [facility] Care Teams Intelligence Specialist Relationship Specialty Start Date End Date No, Pcp (Do Not Change Name) PCP - General 09/26/20
== END 2024-06-24 17:01 | disposition home or self-care (01) ==
LOC: HO.HOP 16:25
PROVIDERS: PCP Family Medicine; Visit Provider Clinical Nurse Specialist Psychiatric/Mental Health
DX: F41.1 Generalized anxiety disorder (principal); E55.9 Vitamin D deficiency, unspecified; R53.82 Chronic fatigue, unspecified
CPT/HCPCS: 99214

== ENCOUNTER → 2024-06-24 16:25 | Outpatient (BNVA) | payer OTHER, SELFPAY | PROVIDERS: PCP Family Medicine; Visit Provider Clinical Nurse Specialist Psychiatric/Mental Health ==

== ENCOUNTER 2024-06-25 13:54 | Outpatient (REF) | payer OTHER, SELFPAY ==
--- OUTSIDE RECORDS SUMMARY | 2024-06-25 19:08 | XMS_ITS | Clinical Summary ---
Author Organization [address] [address] Phone Care Team Providers Care Fund Controller Name Role Phone No, Pcp (Do Not [...] patient's age to complete this topic Insurance [facility] BS [facility] Care Teams Fund Controller Relationship Specialty Start Date End Date No, Pcp (Do Not Change Name) PCP - General 09/26/20
--- OUTSIDE RECORDS SUMMARY | 2024-06-25 19:08 | XMS_ITS | Continuity of Care Document ---
Author Organization [facility] Address [address] [place] [address] Phone Care Team Providers Care Enrober Name Role Phone Unavailable Unavailable Unavailable Procedures [...] Diagnoses Date Provider Providers Copied on Encounter [address], [id number], tel:[phone] [facility] EXAMINATION 2 No Information [address], [id number], [place] tel:[phone] [facility] 2 [place] [facility]. [address] [place] [address], [id number], [place]. tel:[phone], [id number], tel:[phone] [facility] EXAMINATION 2 No Information [address], [id number], [place] tel:[phone] [facility] No Information Mar- 0 No Information [address], [id number], [place] tel:[phone] [facility] No Information 0 No Information [address], [id number], [place] tel:[phone] [facility] No Information 0 No Information [address], [id number], [place] tel:[phone] [facility] No Information 0 No Information [address], [id number], [place] tel:[phone] [facility] No Information May-2 4-201 0 No Information Family History Family Member Type Diagnosis Age At Onset No Information Payers Payer name Insurance type Covered constitution party ID Demar balbuena(s) D [facility] [id number] Social History Type Description Quantity Date Captured [...]
[2024-06-28 14:54] LABS: HPV Genotype 16 Negative (Negative); HPV Genotype 18 Negative (Negative); HPV High Risk Negative (Negative)
== END 2024-06-25 13:55 | disposition home or self-care (01) ==
LOC: HO.LNP 13:54
PROVIDERS: PCP Family Medicine; Visit Provider Advanced Practice Midwife
DX: Z01.419 Encounter for gynecological examination (general) (routine) without abnormal findings (principal); N76.0 Acute vaginitis; B96.89 Other specified bacterial agents as the cause of diseases classified elsewhere
CPT/HCPCS: 87626; 88175

== ENCOUNTER 2024-06-25 13:54 | Outpatient (AMB) | payer OTHER, SELFPAY ==
[2024-06-25 14:06] VITALS: BP 100/60; BMI 18.7
--- NOTE | 2024-06-25 14:06 | A.OFFVIS_ITS ---
Vital Signs 06/25/24 14:06 Height 5 ft 2 in Weight 102 lb BMI 18.7 BP 100/60 Intake Visit Reasons: New patient annual Firmware Test Engineer Required: No Firmware Test Engineer Services: Firmware Test Engineer Present Information Interpreted: clinical only Junior Loan Processor: Junior Loan Processor Present Allergies Seasonal Allergies Allergy (Intermediate, Verified 06/25/24 14:07) Itchy Eyes Medication List - Last Reconciled 06/25/24 by Maricruz Cordero CNM buspirone 15 mg (1.5 x 10 mg) PO BID digestive enzymes 1 cap PO DAILY fexofenadine (Tri Allergy) 180 mg PO DAILY 90 days magnesium oxide 1,000 mg PO DAILY methocarbamol 750 mg PO TID 7 days olopatadine 0.7% (Pataday Once Daily Relief) 1 drp ophthalmic (eye) DAILY PRN 30 days ondansetron 4 mg PO Q8H PRN pepsin (bulk) (Pepsin 3,000 Digestion powder) ea miscellaneous Is last menstrual period known: Yes Last menstrual period: 06/22/24 HPI HPI New patient annual: Details: Establish care with a material coordinator provider in needs a Pap smear. She has been on a long journey of dealing with bacterial vaginosis and all its sequelae. She had been on the usual metronidazole treatments and they were not really working for her and she needed to really work on reestablishing her micro by own and vaginal chrissy she has been working with testing done and advice and treatments offered through accompany called [employer] and [employer]. She has purchased various vaginal probiotic supplements and treatments and other treatments such as lactulose in various other treatments and has spent a lot of money on the process but feels like she is finally meeting with success she gets test results that she has not her phone the site her entire vaginal micro by own and the percentage each bacteria present in which are helpful which are non helpful and other categories as well. She got tested for STIs the last time she was in the relationship and she think it was be exposure to a partner without using a condom that set her off on upsetting her own chrissy in the 1st place. She would like a Pap smear because it has been a little while since she has had 1. She has a established with a new primary care provider and is working on her health at 1 point she was doing a Paleo diet and her cholesterol was elevated but then it came down but she will be rechecking it again soon. She is currently not sexually active and if she did she would use condom. She lost a lot of weight about 50 lb by stopping drinking and she does have support around the. 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 [facility] Medical History External hemorrhoid Anxiety Depression Surgical History History of wisdom tooth extraction Family History Mother Diverticulitis Skin cancer Sister Skin cancer Social History Housing: Apartment Alcohol intake: never Patient Tobacco Use Status: Never used Tobacco e-Cigarette/Vaping Use: Never Used Substance Use Type: Marijuana service: No Current occupational status: employed Current occupational exposures/hazards: No Cognitive needs: No Hearing needs: No Vision needs: No Female Reproductive History Menstrual Age of Menarche: 11 Duration of menses: 3-5 days Date of last menstrual period: 06/22/24 control method: none Total pregnancies: 0 Date of last pap smear: 05/21/21 (negative) History of abnormal pap smear: No Physical Exam Vital Signs: Last Vital Signs BP 100/60 06/25/24 14:06 BMI result Body Mass Index 18.7 Const General: healthy appearing, comfortable, no acute distress, well developed and alert Nutritional Appearance: average body habitus, thin and underweight Orientation/consciousness: patient oriented x3 Limitations: no limitations HEENT Head: Yes normocephalic Neck Neck: Yes normal visual inspection Chest Chest palpation & inspection: normal inspection of the chest Breast/axilla inspection: normal inspection of the breasts and normal inspection of the axillae Breast/axilla palpation: normal palpation of the breasts and normal palpation of the axillae Resp Effort & Inspection: normal respiratory effort GI Inspection: Yes normal to inspection, No Abdominal wall edema and No distended Palpation (GI): Soft to palpation and nontender Other: External exam within normal limits no inflammation noted skin thin consistent with latoya menopausal type changes and recent weight loss Vagina pink moist end of menses noted in vagina cervix nulliparous pink smooth mobile nontender midposition deviated slightly to right Uterus small midposition difficult to feel secondary to strong abdominal muscle tone. Adnexa nontender nonenlarged good tone with Kegel. General: Yes bladder normal to palpation External Female Exam: normal external appearance and normal appearance of the urethra Speculum Exam - Vagina: normal appearance of the vagina, normal palpation and normal vaginal discharge Speculum Exam - Cervix: normal appearance of the cervix, normal palpation and nontender Bimanual exam- vagina & uterus: normal bimanual exam, normal palpation, uterine size normal, bladder normal to palpation, consistency normal, normal palpation, uterine mobility normal, uterine shape normal, No Cervical tenderness present, non-tender and no cervical motion tenderness Bimanual Exam- Adnexa, other: normal adnexae, no masses, normal and No adnexal tenderness Neuro General: patient oriented x3 Assessment & Plan Assessment & Plan (1) Well woman exam with routine gynecological exam: Code(s): Z01.419 - Encounter for gynecological examination (general) (routine) without abnormal findings Category: Medical (2) Bacterial vaginosis: Comment: Has done extensive research and testing through [employer], and [employer], which has provided her with detail of her micro by own and advice on treatments that she buys through [employer] and [employer] and is experiencing relief and success. Testing with our very basic testing was deferred today, Code(s): N76.0 - Acute vaginitis; B96.89 - Other specified bacterial agents as the cause of diseases classified elsewhere Category: Medical Plan -----Discussed in this visit the following: healthy balanced diet, regular and consistent exercise, getting recommended health screens, doing the best she can for her particular health concerns, kegel exercises, pap smear screening and followup recommendations, mammography screening and SBE, normal changes in cycles in her life stage--- . Discussed yearly mammograms starting at age 40 Discussed Pap smear screening with HPV co testing every 5 years if this is negative her next Pap will be in 5 years. Discussed the Gardasil vaccine which is available up to age 45 she would have to check with her insurance company as to whether to could be given in the office or pharmacy She is well 1st in the data and science that is currently available regarding vaginal micro by own in treatments available and has embarked on system of occasional boric acid use treatment with metronidazole as she sees fit or is recommended, and every other day treatments with probiotics and lactulose as well as occasional 14 day treatments with........................... Review that why we say come back every year if she has no need of control does not need her Pap smear and does not need STI testing then so long as she is seen least her primary care provider yearly and starts mammograms next year that that would be the most important thing. Also she did mention curiosity about getting all of her hormones tested I shared with her that I do not do that is specific kind of testing and so she may seek it out through the [facility]. Orders: Orders Pap Smear Today Z00.00 - Encounter for general adult medical examination without abnormal findings Coding Level of Care Code New Pt Prev Care 18-39yr([id number] Diagnoses Well woman exam with routine gynecological exam Z01.419 Bacterial vaginosis N76.0; B96.89
--- OUTSIDE RECORDS SUMMARY | 2024-06-25 17:32 | XMS_ITS | Clinical Summary ---
Author Organization [address] [address] Phone Care Team Providers Care Radiographic Technologist Name Role Phone No, Pcp (Do Not [...] patient's age to complete this topic Insurance [facility] BS [facility] Care Teams Radiographic Technologist Relationship Specialty Start Date End Date No, Pcp (Do Not Change Name) PCP - General 09/26/20
--- OUTSIDE RECORDS SUMMARY | 2024-06-25 17:32 | XMS_ITS | Continuity of Care Document ---
Author Organization [facility] Address [address] [place] [address] Phone Care Team Providers Care Restaurant Manager Name Role Phone Unavailable Unavailable Unavailable Procedures [...] Diagnoses Date Provider Providers Copied on Encounter [address], [id number], tel:[phone] [facility]AM[facility]ATION [address], [id number], [place] tel:[phone] [facility] 2 [place] [facility]. [address] [place] [address], [id number], [place]. tel:[phone], [id number], tel:[phone] [facility] EXAM[facility]ATION 2 No Information [address], [id number], [place] tel:[phone] [facility] No Information Mar- 0 No Information [address], [id number], [place] tel:[phone] [facility] No Information 0 No Information [address], [id number], [place] tel:[phone] [facility] No Information 0 No Information [address], [id number], [place] tel:[phone] [facility] No Information 0 No Information [address], [id number], [place] tel:[phone] [facility] No Information May-2 4-201 0 No Information Family History Family Member Type Diagnosis Age At Onset No Information Payers Payer name Insurance type Covered democrat ID Demar balbuena(s) D [facility] CI [id number] Social History Type Description Quantity Date Captured [...]
== END 2024-06-25 15:20 | disposition home or self-care (01) ==
PROVIDERS: PCP Family Medicine; Visit Provider Advanced Practice Midwife
DX: Z01.419 Encounter for gynecological examination (general) (routine) without abnormal findings (principal); N76.0 Acute vaginitis; B96.89 Other specified bacterial agents as the cause of diseases classified elsewhere
CPT/HCPCS: 99385; 99459

== ENCOUNTER 2024-07-16 09:32 | Outpatient (REF) | payer OTHER, SELFPAY ==
[2024-07-16 11:22] LABS: MANUAL DIFF FLAG NO
[2024-07-16 11:29] LABS: Basophils Percent Auto 0.7 % (0-2); Eosinophils Absolute Auto 0.1 X10*3/uL (0.0-0.4); Eosinophils Percent Auto 1.6 % (0-4); Hematocrit 37.4 % (37.0-47.0); Hemoglobin 12.4 g/dl (12.0-16.0); Imm Gran Abs Auto 0.01 X10*3/uL (0.00-0.03); Imm Gran Pct Auto 0.2 % (0.0-0.4); Lymphocytes Absolute Auto 1.7 X10*3/uL (1.2-4.9); Mean Corpuscular HGB Conc 33.2 g/dl (31.0-35.0); Mean Corpuscular Hemoglobin 30.7 pg (27.0-33.0); Mean Corpuscular Volume 92.6 fL (80.0-98.0); Mean Platelet Volume 11.5 fL (9.4-12.3); Monocytes Absolute Auto 0.4 X10*3/uL (0.1-1.2); Monocytes Percent Auto 9.2 % (2-11); Neutrophils Absolute Auto 2.1 x10*3/uL (2.0-8.3); Neutrophils Percent Auto 48.3 % (45-73); Platelet Count 203 X10*3/uL (160-400); Red Blood Count 4.04 X10*6/uL (4.20-5.50); Red Cell Distribution Width 12.3 % (11.0-16.0); White Blood Count 4.3 X10*3/uL (4.8-10.8)
[2024-07-16 11:54] LABS: Iron 86 mcg/dL (30-160); Percent Iron Saturation 33 % (15-50); Total Iron Binding Capacity 258 mcg/dL (228-428); Unsaturated Iron Binding 172 ug/dL
[2024-07-16 12:15] LABS: Ferritin 20 ng/mL (10-122); Vitamin D 25-OH Total 75.3 ng/mL (>30)
[2024-07-17 08:08] LABS: Transferrin 225 mg/dL (188-341)
== END 2024-07-16 09:33 | disposition home or self-care (01) ==
LOC: HO.WFDLDS 09:32
PROVIDERS: Visit Provider Clinical Nurse Specialist Psychiatric/Mental Health
DX: F41.1 Generalized anxiety disorder (principal); F32.A Depression, unspecified; E55.9 Vitamin D deficiency, unspecified; R53.83 Other fatigue; R10.9 Unspecified abdominal pain
CPT/HCPCS: 36415; 82306; 82728; 83540; 84466; 85025

== ENCOUNTER 2024-07-24 08:44 | Outpatient (AMB) | payer OTHER, SELFPAY ==
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
[2024-07-24 08:53] VITALS: BP 96/60; PULSE 63; RESP 14; TEMP 36.7; O2SAT 100; BMI 18.7
--- OUTSIDE RECORDS SUMMARY | 2024-07-24 09:16 | XMS_ITS | Clinical Summary ---
Author Organization [address] [address] Phone Care Team Providers Care Chief Analytics Officer Name Role Phone No, Pcp (Do Not [...] (Td q 10,TDAP once) 07/01/2027 018 RSV Immunization (1 - 1-dose 75+ series) 2060 Meningococcal Vaccine Aged Out No jin phil eligible based on patient's age to complete this topic Pneumococcal Vaccine (2 - 49 years) Aged Out No longer eligible b ased on patient's age to complete this topic Insurance [facility] Care Teams Chief Analytics Officer Relationship Specialty Start Date End Date No, Pcp (Do Not Change Name) PCP - General 09/26/20
--- OUTSIDE RECORDS SUMMARY | 2024-07-24 09:16 | XMS_ITS | Continuity of Care Document ---
Author Organization [facility] [place] [address] [place] [address] Phone Care Team Providers Care Emissions Technician Name Role Phone Unavailable Unavailable Unavailable Procedures [...] Diagnoses Date Provider Providers Copied on Encounter [address], [id number], tel:[phone] [facility] DENTAL EXAMINATION [address] No Information [address], [id number], [place] tel:[phone] [facility] DENTAL EXAMINATION 2 [place] Alison. [address] [place] [address], [id number], [place]. tel:[phone], [id number], tel:[phone] [facility] DENTAL EXAMINATION 2 No Information [address], [id number], [place] tel:[phone] [facility] No Information Mar- 0 No Information [address], [id number], [place] tel:[phone] [facility] No Information 0 No Information [address], [id number], [place] tel:[phone] [facility] No Information 0 No Information [address], [id number], [place] tel:[phone] [facility] No Information 0 No Information [address], [id number], [place] tel:[phone] [facility] No Information May-2 4-201 0 No Information Family History Family Member Type Diagnosis Age At Onset No Information Payers Payer name Insurance type Covered republican ID Demar balbuena(s) D [facility] [place] [id number] Social History Type Description Quantity Date Captured [...]
== END 2024-07-24 09:34 | disposition home or self-care (01) ==
LOC: HO.HMCFM 08:44
PROVIDERS: PCP Family Medicine; Visit Provider Family Medicine
DX: R63.4 Abnormal weight loss (principal); F41.8 Other specified anxiety disorders; R53.82 Chronic fatigue, unspecified; M25.512 Pain in left shoulder

== ENCOUNTER 2024-07-24 10:05 | Outpatient (REF) | payer OTHER, SELFPAY ==
--- OUTSIDE RECORDS SUMMARY | 2024-07-24 11:39 | XMS_ITS | Continuity of Care Document ---
Author Organization [facility] Address [address] [place] [address] Phone Care Team Providers Care Tableman Name Role Phone Unavailable Unavailable Unavailable Procedures [...] Diagnoses Date Provider Providers Copied on Encounter [address], [id number], tel:[phone] [facility] DENTAL EXAMINATION [address], [id number], [place] tel:[phone] [facility] DENTAL EXAMINATION 2 Bent Alison. [address] [place] [address], [id number], [place]. tel:[phone], [id number], tel:[phone] [facility] DENTAL EXAMINATION 2 No Information [address], [id number], [place] tel:[phone] [facility] No Information Mar- 0 No Information [address], [id number], [place] tel:[phone] [facility] No Information 0 No Information [address], [id number], [place] tel:[phone] [facility] No Information 0 No Information [address], [id number], [place] tel:[phone] [facility] No Information 0 No Information [address], [id number], [place] tel:[phone] [facility] No Information May-2 4-201 0 No Information Family History Family Member Type Diagnosis Age At Onset No Information Payers Payer name Insurance type Covered green party ID Demar balbuena(s) D [facility] [id number] Social History Type Description Quantity Date Captured [...]
--- OUTSIDE RECORDS SUMMARY | 2024-07-24 11:39 | XMS_ITS | Clinical Summary ---
Author Organization [address] [address] Phone Care Team Providers Care Operator Maintainer Name Role Phone No, Pcp (Do Not [...] [facility] Care Teams Operator Maintainer Relationship Specialty Start Date End Date No, Pcp (Do Not Change Name) PCP - General 09/26/20
[2024-07-24 12:24] LABS: Alanine Aminotransferase 11 U/L (0-31); Albumin Level 4.2 g/dL (3.5-5.0); Alkaline Phosphatase 32 U/L (39-117); Anion Gap 10 (12-20); Aspartate Amino Transferase 16 U/L (5-31); Bilirubin Total 0.4 mg/dL (0.0-1.0); Blood Urea Nitrogen 12 mg/dL (9-16); Calcium 9.3 mg/dL (8.4-10.2); Carbon Dioxide 27 mmol/L (22-29); Chloride 107 mmol/L (96-108); Cholesterol 229 mg/dL (<200); Estimated Glomerular Filt Rate > 60; Glucose Fasting 76 mg/dL (60-99); HDL Cholesterol 62 mg/dL (>40); LDL Cholesterol Calculated 153 mg/dL (<100); Potassium 3.9 mmol/L (3.3-5.1); Sodium 140 mmol/L (135-145); Total Protein 6.7 g/dL (6.5-8.0); Triglycerides 74 mg/dL (<150)
[2024-07-24 12:43] LABS: Free T4 (Free Thyroxine) 1.04 ng/dL (0.71-1.85); Thyroid Stimulating Hormone 1.35 uIU/mL (0.32-4.0)
[2024-07-25 07:49] LABS: Triiodothyronine T3 Total 93 ng/dL (76-181)
== END 2024-07-24 10:06 | disposition home or self-care (01) ==
LOC: HO.WFDLDS 10:05
PROVIDERS: Visit Provider Family Medicine
DX: Z00.00 Encounter for general adult medical examination without abnormal findings (principal); R53.82 Chronic fatigue, unspecified; E03.9 Hypothyroidism, unspecified
CPT/HCPCS: 36415; 80053; 80061; 84439; 84443; 84480

== ENCOUNTER 2024-08-09 14:15 | Outpatient (AMB) | payer OTHER, SELFPAY ==
[2024-08-09 14:17] VITALS: BP 120/76; PULSE 84; O2SAT 100; BMI 18.8
--- NOTE | 2024-08-09 14:17 | A.OFFVIS_ITS ---
Vital Signs 08/09/24 14:17 Height 5 ft 2 in Weight 103 lb BMI 18.8 BP 120/76 Blood Pressure Location Rt brachial Position Sitting Pulse 84 Pulse Source Pulse Oximeter Pulse Oximetry (%) 100 Oxygen Delivery Method Room Air Intake Visit Reasons: Fecal abn. YOLA 2022. Intake Note: ESTABLISHED PATIENT for fecal abn mgmt. YOLA 2022. Chief Complaint; C/O IBS concerns. Pt reports recently following Viome supplements to help with IBS mgmt which she says has been helpful and worth the investment. Pt has stopped her digestive enzymes / pepsin per that as well as dietary adjustments. Pt also following low FODMAP diet with noticeable improvement. 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 YOLA 2022.: Details: LAST VISIT: Weight loss Loss of appetite Hemorrhoids Postprandial abdominal pain in right upper quadrant Constipation Plan Will check transglutaminase, vitamin-D, B12 and folate. Patient will start drinking senna tea to help her. She can try hydrocortisone for hemorrhoids. Discussed with patient will FODMAP diet. List of food to recommended as well as list of food to avoid given to patient. Patient will return in the office in 3 months, however she was encouraged to call if she will have any GI concerning symptoms. She is agreeable to this plan and verbalizes understanding of instructions. She was given the opportunity to ask questions and all questions answered. ? Thank you for allowing me to participate in her care Orders Orders Transglutaminase IgA 02/15/23 R10.9 Transglutaminase Ab IgG 02/15/23 R10.9 Vitamin D 25-OH (D2 and D3) 02/15/23 E55.9 Vitamin B12 and Folate 02/15/23 R19.7 Medications New hydrocortisone 2.5% (Proctosol HC) 1 appl MS BID-QID PRN 30 grams 2RF hemorrhoids K64.9 hydrocortisone acetate 30 mg MS BEDTIME 12 ea 0RF 3 weeks TODAY'S VISIT: Patient is here today for follow-up. Patient reports that she has been doing well. She invested and did is stool study to see what food she should and should not eat. According to the study she has been following her diet and she states that she has been feeling great. Denies any symptoms. Follows low FODMAP diet as well. Patient is also following Viome supplements and reports that she has been feeling well. [facility] Medical History External hemorrhoid Anxiety Depression Surgical History History of wisdom tooth extraction Family History Mother Diverticulitis Skin cancer Sister Skin cancer Social History Housing: Apartment Alcohol intake: never Patient Tobacco Use Status: Never used Tobacco e-Cigarette/Vaping Use: Never Used Substance Use Type: Marijuana service: No Current occupational status: employed Current occupational exposures/hazards: No Cognitive needs: No Hearing needs: No Vision needs: No Female Reproductive History Menstrual Age of Menarche: 11 Review of Systems Const Denies weight gain and Denies weight loss ENT Reports no additional complaints, Denies dysphagia and Denies odynophagia Card Reports no additional complaints Resp Reports no additional complaints GI Denies abdominal pain, Denies belching, Denies melena, Denies bloating, Denies change in bowel habits, Denies dysphagia, Denies excessive flatus, Denies dyspepsia, Denies heartburn, Denies diarrhea, Denies loose stools, Denies nausea, Denies odynophagia and Denies vomiting Musc Reports no additional complaints Neuro Reports no additional complaints Psych Reports no additional complaints Endo Reports no additional complaints Physical Exam Vital Signs: Last Vital Signs Pulse 84 08/09/24 14:17 BP 120/76 08/09/24 14:17 Pulse Ox 100 08/09/24 14:17 Oxygen Delivery Method Room Air 08/09/24 14:17 BMI result Body Mass Index 18.8 Const General: healthy appearing, no acute distress and well developed Nutritional Appearance: well nourished Orientation/consciousness: patient oriented x3 Resp Effort & Inspection: normal respiratory effort, able to speak in complete sentences, no tracheal deviation and symmetric chest movement Auscultation: clear to auscultation bilaterally Cardio Rate: regular rate GI Inspection: Yes normal to inspection and No distended Palpation (GI): Soft to palpation, not firm, nontender and No hepatosplenomegaly present Auscultation: normal bowel sounds General: Yes no CVA tenderness Back/Spine/Pelvis Back: no CVA tenderness Skin General skin exam: elasticity normal, turgor normal and dry skin Neuro General: patient oriented x3 Psych Appearance: grossly normal Mental Status: mental status grossly normal Results Reviewed Results Reviewed: Laboratory Tests 08/24/23 07/16/24 10:33 09:33 Total Bilirubin 0.6 AST 14 ALT 10 Alkaline Phosphatase 40 Cholesterol 239 H LDL Cholesterol, Calc 152 H HDL Cholesterol 71 Vitamin B12 380 25-OH Vitamin D Total 10.6 L 75.3 TSH 1.16 Tiss Transglutamin IgG <1.0 Tiss Transglutamin IgA <1.0 Assessment & Plan Assessment & Plan (1) Weight loss: Code(s): R63.4 - Abnormal weight loss Category: Medical (2) Loss of appetite: Code(s): R63.0 - Anorexia Category: Medical (3) Hemorrhoids: Code(s): K64.9 - Unspecified hemorrhoids Category: Medical Qualifiers: Hemorrhoid type: unspecified Qualified Code(s): K64.9 - Unspecified hemorrhoids (4) Postprandial abdominal pain in right upper quadrant: Code(s): R10.11 - Right upper quadrant pain (5) Constipation: Code(s): K59.00 - Constipation, unspecified Qualifiers: Constipation type: slow transit constipation Qualified Code(s): K59.01 - Slow transit constipation Plan Patient reports that she has been feeling well, much better than last visit in January of 2023. Patient has been following her own diet and seems to be feeling well. Denies any GI concerning symptoms. Reports that she has a good appetite. Patient however was encouraged to increase calorie diet and protein intake to help her increase weight. Patient will follow-up in our office as needed. She is agreeable to current plan of care and verbalizes understanding of instructions. She was given the opportunity to ask questions and all que stions answered. Thank you for allowing me to participate in her care Coding Level of Care Code Est Pt Level 3 (73119) Diagnoses Weight loss R63.4 Loss of appetite R63.0 Hemorrhoids, unspecified hemorrhoid type K64.9 Hemorrhoid type: unspecified Postprandial abdominal pain in right upper quadrant R10.11 Slow transit constipation K59.01 Constipation type: slow transit constipation Time Spent (min) 30 Comment 20 minutes spent with patient and additional 10 minutes spent reviewing her records
--- OUTSIDE RECORDS SUMMARY | 2024-08-09 14:37 | XMS_ITS | Clinical Summary ---
Author Organization [address] [address] Phone Care Team Providers Care Cake Wrapper Name Role Phone No, Pcp (Do Not [...] C screening 2003 Cervical cancer screening 2006 Covid-19 vaccine series ( season) 2023 Influenza vaccine 12/23/2024 01/30/2020 Tetanus adult (Td q 10,TDAP once) 07/01/2027 018 RSV Immunization (1 - 1-dose 75+ series) 2060 Meningococcal Vaccine Aged Out No jin phil eligible based on patient's age to complete this topic Pneumococcal Vaccine (2 - 49 years) Aged Out No longer eligible b ased on patient's age to complete this topic Insurance [facility] BS [facility] Care Teams Cake Wrapper Relationship Specialty Start Date End Date No, Pcp (Do Not Change Name) PCP - General 09/26/20
--- OUTSIDE RECORDS SUMMARY | 2024-08-09 14:37 | XMS_ITS | Continuity of Care Document ---
Author Organization [facility] Address [address] [place] [address] Phone Care Team Providers Care Steam Pipe Fitter Name Role Phone Unavailable Unavailable Unavailable Procedures [...] Diagnoses Date Provider Providers Copied on Encounter [address], [id number], tel:[phone] [facility] DENTAL EXAMINATION [address], [id number], [place] tel:[phone] [facility] DENTAL EXAMINATION 2 Abelardo Alison. [address] [place] [address], [id number], [place]. tel:[phone], [id number], tel:[phone] [facility] DENTAL EXAMINATION [address], [id number], [place] tel:[phone] [facility] No Information Mar- 0 No Information [address], [id number], [place] tel:[phone] [facility] No Information 0 No Information [address], [id number], [place] tel:[phone] [facility] No Information 0 No Information [address], [id number], [place] tel:[phone] [facility] No Information 0 No Information [address], [id number], [place] tel:[phone] [facility] No Information May-2 4-201 0 No Information Family History Family Member Type Diagnosis Age At Onset No Information Payers Payer name Insurance type Covered libertarian ID Demar balbuena(s) D [facility] CI [id number] Social History Type Description Quantity Date Captured [...]
== END 2024-08-09 15:31 | disposition home or self-care (01) ==
LOC: HO.HGI 14:16
PROVIDERS: PCP Family Medicine; Visit Provider Nurse Practitioner Family
DX: R63.4 Abnormal weight loss (principal); R63.0 Anorexia; K64.9 Unspecified hemorrhoids; R10.11 Right upper quadrant pain; K59.01 Slow transit constipation
CPT/HCPCS: 99213

== ENCOUNTER → 2024-08-09 14:15 | Outpatient (BNVA) | payer OTHER, SELFPAY | PROVIDERS: PCP Family Medicine; Visit Provider Nurse Practitioner Family ==

== ENCOUNTER 2024-08-28 14:41 | Outpatient (AMB) | payer OTHER, SELFPAY ==
--- NOTE | 2024-08-28 14:50 | MHC.PC.OV ---
Vital Signs 08/28/24 14:54 Height 5 ft 2 in Weight 104 lb 2 oz BMI 19.0 BP 96/60 Blood Pressure Location Rt brachial Position Sitting Respiration 14 Pulse 75 Pulse Source Pulse Oximeter Temp 97.7 F Temp Source Oral Pulse Oximetry (%) 100 Oxygen Delivery Method Room Air Intake Visit Reasons: f/u weight Intake Note: patient scheduled for weight main, an wants to med refills. Allergies Seasonal Allergies Allergy (Intermediate, Verified 08/28/24 14:52) Itchy Eyes Tobacco use date assessed: 08/28/24 Dental Screening Dental Screen Date: 06/01/23 HPI f/u weight HPI Details 39 y/o female presents to f/u weight loss and HLD. Also fatigue. Prior visit 07/24/24 BMI 18.7. Has increased to 19.0 today 08/28/24. Pt notes she has improved her diet and has been eating more protein. She exercises 2 miles a day daily. Labs drawn 07/24/24. Reviewed labs with pt. Triglycerides 74. TC 229. LDl 153. HDL 62. Thryoid levels are fine. She reports ongoing L shoulder pain. 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 HPI Comments History of Present Illness Details Documentation assistance for Chad Mix MD, was provided by Ezra Montes,? Logistics Manager on 08/28/2024 at 3:26 PM EST. I, Dr. Mix, have read, observed, and verified documentation. ? PFSH Medical History External hemorrhoid Anxiety Depression Surgical History History of wisdom tooth extraction Family History Mother Diverticulitis Skin cancer Sister Skin cancer Social History Housing: Apartment Alcohol intake: never Patient Tobacco Use Status: Never used Tobacco e-Cigarette/Vaping Use: Never Used Substance Use Type: Marijuana service: No Current occupational status: employed Current occupational exposures/hazards: No Cognitive needs: No Hearing needs: No Vision needs: No Female Reproductive History Menstrual Age of Menarche: 11 Questionnaire Thrive Questionnaire Date Thrive assessed: 07/17/24 I am a: Patient What is your living situation today?: I have a steady place to live Within the past 12 months, did the food you bought not last and you didn't have the money to get more?: Never true Within the past 12 months, did you worry whether your food would run out before you got money to buy more?: Never true Do you have trouble paying for medicines?: No Do you have trouble getting transportation to medical appointments?: No Do you have trouble paying your heating and electricity bill?: No Do you have trouble taking care of your child, family member or friend?: No Do you have trouble with day-to-day activities such as bathing, preparing meals, shopping, managing finances, etc.?: No Are you currently unemployed and looking for a job?: No Are you interested in more education?: No Please select the resources that you would like help with: None Currently or been in a relationship where the following occur: I choose not to answer THRIVE Score: 0 SIMRAN-7 AMB Questionnaire SIMRAN-7 Date SIMRAN - 7 assessed: 02/09/24 Source: Developed by Drs. Bassam Soriano, Brie Varma, Aurelio Scott and colleagues, with an educational hossein from [employer]. Review of Systems Const Denies chills, Reports fatigue, Denies fever(s), Denies headache(s) and Denies weakness ENT Denies dizziness and Denies headache(s) Card Denies dyspnea Resp Denies cough, Denies dyspnea, Denies wheezing and Denies other (shortness of breath) Musc Details: L shoulder pain Denies numbness and Denies tingling Neuro Denies dizziness, Denies headache(s), Denies numbness, Denies tingling and Denies weakness Psych Denies anxiety and Denies depression Endo Reports fatigue Aller/Immun Denies wheezing Physical exam (Primary Care) Vital Signs: Last Vital Signs Temp 97.7 F 08/28/24 14:54 Pulse 75 08/28/24 14:54 Resp 14 08/28/24 14:54 BP 96/60 08/28/24 14:54 Pulse Ox 100 08/28/24 14:54 Oxygen Delivery Method Room Air 08/28/24 14:54 BMI result Body Mass Index 19.0 Tobacco/Smoking Status: Tobacco use Status Tobacco use date assessed 08/28/24 08/28/24 15:00 Patient Tobacco Use Status Never used Tobacco 08/28/24 14:51 e-Cigarette/Vaping Use Never Used 08/28/24 14:51 Thrive Assessment: Date of Thrive Assessment Date Thrive assessed 07/17/24 08/28/24 14:51 Currently or been in a relationship where the following occur: I choose not to answer Const General: well developed; No acute distress Nutritional Appearance: well nourished Orientation/consciousness: patient oriented x3 HENMT Head: Yes normocephalic and Yes atraumatic Eyes General: appearance normal, both eyes and all related structures Pupils: Equal, round and reactive pupils present EOM: EOMs intact bilaterally Resp Effort & Inspection: normal respiratory effort Auscultation: clear to auscultation bilaterally Cardio Rate: regular rate Rhythm: regular rhythm Heart sounds: S1 normal heart sound present, S2 normal heart sound present, no gallops, no murmurs and no rubs Neuro General: patient oriented x3 and gait normal Cranial nerves: Yes Equal, round and reactive pupils present Psych Affect: normal affect Coding Level of Care Code Est Pt Level 4 (05478) Diagnoses Weight loss R63.4 Hyperlipidemia E78.5 Left shoulder pain M25.512 IBS (irritable bowel syndrome) K58.9 Assessment & Plan Assessment & Plan (1) Weight loss: Code(s): R63.4 - Abnormal weight loss Category: Medical Plan: Patient?has?been?working?on?maintaining?and?increasing?her?weight. We?had?discussed?protein?sources?at?her?last?visit?and?she?is?using?mostly?pea?protein?and?also?chicken No?longer?losing?weight?and?has?gained?1-2?lb. Continue?regular?meals?and?increasing?protein?as?tolerated. (2) Hyperlipidemia: Code(s): E78.5 - Hyperlipidemia, unspecified Category: Medical Plan: LDL?cholesterol?is too?high. Encouraged?a?diet?lower?in?cholesterol She?is?also?exercising?more Will?recheck?in?a?couple?of?months?with?her?next?visit. We?discussed?that?she?does?not?want?to?use?a?statin?but?we?also?talked?about?Zetia (3) Left shoulder pain: Code(s): M25.512 - Pain in left shoulder Category: Medical Plan: Left?subscapular?pain Demonstrated?exercises?and?gave?her?a?refill?on?cyclobenzaprine. Can?also?use?ice/heat?and?NSAIDs (4) IBS (irritable bowel syndrome): Code(s): K58.9 - Irritable bowel syndrome, unspecified Category: Medical Plan: Improve Continue?good?hydration Medications: New fluconazole 150 mg PO Q3D 2 tabs 0RF Changed From buspirone 15 mg (1.5 x 10 mg) PO BID 90 tabs 2RF To buspirone 20 mg (2 x 10 mg) PO BID 90 days 360 tabs 2RF Refilled cyclobenzaprine 10 mg PO Q12H 7 days PRN 14 tabs 1RF muscle spasm Discontinued methocarbamol Discontinued Reason: Doctor's Order 750 mg PO TID 7 days 21 tabs 0RF
[2024-08-28 14:54] VITALS: BP 96/60; PULSE 75; RESP 14; TEMP 36.5; O2SAT 100; BMI 19.0
--- OUTSIDE RECORDS SUMMARY | 2024-08-28 15:48 | XMS_ITS | Continuity of Care Document ---
Author Organization [facility] Address [address] [place] [id number] Phone Care Team Providers Care Flavor Room Worker Name Role Phone Unavailable Unavailable Unavailable Procedures Procedure Date Sealant Per Tooth Treatment Plan Completed Resin-based Composite - 1 Surface, Poste rior Treatment Plan Completed Resin-based Composite - 1 Surface, Poste rior Advance Directives Directive Yes / No Effective Date File Name No Information Encounters Encounter Description Practice Location Reason(s) For Visit Diagnoses Date Provider [address], [id number], tel:[phone] [facility] [address], [id number], tel:[phone] [facility] 2011 Abelardo Rosas. [address] [place] [address], [id number], [place]. tel:[phone], [id number], [place] tel:[phone] [facility] [address] No Information [address], [id number], [place] tel:[phone] [facility] No Information 2009 No Information [address], [id number], [place] tel:[phone] [facility] No Information 2009 No Information [address], [id number], tel:[phone] [facility] No Information 2009 No Information [address], [id number], tel:[phone] [facility] No Information 2009 No Information [address], [id number], tel:[phone] [facility] No Information 2009 No Information Family History Family Member Type Diagnosis Age At Onset No Information Payers Payer name Insurance type Covered constitution party ID Demar balbuena(s) D [facility] CI [id number] Social History Type Description Quantity Date Captured Comments Sex Female Smoking Status No Information Chief Complaint And Reason For Visit No Information History Of Present Illness Encounter Date Complaint History Of Prese nt Illness No Information Instructions Date Instruction Additional Infor mation No Information Assessments Type Assessment Date No Information
--- OUTSIDE RECORDS SUMMARY | 2024-08-28 15:48 | XMS_ITS | Clinical Summary ---
Author Organization [address] [phone] Phone Care Team Providers Care Blow Mold Technician Name Role Phone No, Pcp (Do Not [...] patient's age to complete this topic Insurance [facility] BS [facility] Care Teams Blow Mold Technician Relationship Specialty Start Date End Date No, Pcp (Do Not Change Name) PCP - General 09/26/20
== END 2024-08-28 15:46 | disposition home or self-care (01) ==
LOC: HO.HMCFM 14:41
PROVIDERS: PCP Family Medicine; Visit Provider Family Medicine
DX: R63.4 Abnormal weight loss (principal); E78.5 Hyperlipidemia, unspecified; M25.512 Pain in left shoulder; K58.9 Irritable bowel syndrome, unspecified

== ENCOUNTER → 2024-08-28 14:41 | Outpatient (BNVA) | payer OTHER, SELFPAY | PROVIDERS: PCP Family Medicine; Visit Provider Family Medicine ==

== ENCOUNTER 2024-09-17 15:11 | Outpatient (AMB) | payer OTHER, SELFPAY ==
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
--- OUTSIDE RECORDS SUMMARY | 2024-09-17 15:13 | XMS_ITS | Clinical Summary ---
Author Organization [address] [phone] Phone Care Team Providers Care Five Roll Refiner Batch Mixer Name Role Phone No, Pcp (Do Not [...] patient's age to complete this topic Insurance [facility] BS [facility] Care Teams Five Roll Refiner Batch Mixer Relationship Specialty Start Date End Date No, Pcp (Do Not Change Name) PCP - General 09/26/20
== END 2024-09-17 15:12 | disposition home or self-care (01) ==
LOC: HO.HOP 15:11
PROVIDERS: PCP Family Medicine; Visit Provider Clinical Nurse Specialist Psychiatric/Mental Health
DX: F32.A Depression, unspecified (principal); F41.1 Generalized anxiety disorder
CPT/HCPCS: 99214

== ENCOUNTER 2024-11-28 08:31 | Outpatient (REF) | payer BC, SELFPAY ==
--- OUTSIDE RECORDS SUMMARY | 2012-02-08 03:30 | XMS_ITS | Continuity of Care Document ---
Author Organization [facility] Address [address] [place] [phone] Phone Care Team Providers Care Ball Worker Name Role Phone Unavailable Unavailable Unavailable Procedures Procedure Date Sealant Per Tooth Treatment Plan Completed Resin-based Composite - 1 Surface, Poste rior Treatment Plan Completed Resin-based Composite - 1 Surface, Poste rior Advance Directives Directive Yes / No Effective Date File Name No Information Encounters Encounter Description Practice Location Reason(s) For Visit Diagnoses Date Provider [address], [id number], tel:[phone] [facility]ATION [address], [id number], tel:[phone] [facility] 2011 Abelardo Rosas. [address] [place] [address], [id number], [place]. tel:[phone], [id number], [place] tel:[phone] [facility]ATION 2011 No Information [address], [id number], [place] tel:[phone] [facility] No Information 2009 No Information [address], [id number], [place] tel:[phone] [facility] No Information 2009 No Information [address], [id number], tel:[phone] [facility] No Information 2009 No Information [address], [id number], tel:[phone] [facility] No Information 2009 No Information [address], [id number], tel:[phone] [facility] No Information 2009 No Information Family History Family Member Type Diagnosis Age At Onset No Information Payers Payer name Insurance type Covered alliance party ID Demar balbuena(s) D [facility] CI [id number] Social History Type Description Quantity Date Captured Comments Sex Female Smoking Status No Information Chief Complaint And Reason For Visit No Information History Of Present Illness Encounter Date Complaint History Of Prese nt Illness No Information Instructions Date Instruction Additional Infor mation No Information Assessments Type Assessment Date No Information
--- OUTSIDE RECORDS SUMMARY | 2024-11-28 08:44 | XMS_ITS | Clinical Summary ---
Author Organization [address] [phone] Phone Care Team Providers Care It Operations Analyst Name Role Phone No, Pcp (Do Not [...] 70 09/27/2020 6:03 AM EDT Temperature 36.5 C (97.7 F) 09/27/2020 6:03 AM EDT Respiratory Rate 16 09/27/2020 6:03 AM EDT Oxygen Saturation 98% 09/27/2020 6:03 AM EDT Inhaled Oxygen Concentration - - Weight - - Height - - Body Mass Index - - Plan of Treatment Health Maintenance Due Date Last Done Comments HIV screening 1998 Hepatitis C screening 2003 Cervical cancer screening 2006 Covid-19 vaccine series (2023- season) 2023 Influenza vaccine 12/23/2024 01/30/2020 Tetanus adult (Td q 10,TDAP once) 07/01/2027 018 RSV Immunization (1 - 1-dose 75+ series) 2060 Meningococcal Vaccine Aged Out No jin phil eligible based on patient's age to complete this topic Pneumococcal Vaccine (2 - 49 years) Aged Out No longer eligible b ased on patient's age to complete this topic Insurance [facility] Care Teams It Operations Analyst Relationship Specialty Start Date End Date No, Pcp (Do Not Change Name) PCP - General 09/26/20
[2024-11-28 12:05] LABS: Alanine Aminotransferase 14 U/L (0-31); Albumin Level 3.9 g/dL (3.5-5.0); Alkaline Phosphatase 42 U/L (39-117); Anion Gap 11 (12-20); Aspartate Amino Transferase 22 U/L (5-31); Blood Urea Nitrogen 12 mg/dL (9-16); Calcium 8.8 mg/dL (8.4-10.2); Carbon Dioxide 28 mmol/L (22-29); Chloride 104 mmol/L (96-108); Cholesterol 197 mg/dL (<200); Estimated Glomerular Filt Rate > 60; HDL Cholesterol 65 mg/dL (>40); Potassium 4.5 mmol/L (3.3-5.1); Sodium 138 mmol/L (135-145); Total Protein 6.2 g/dL (6.5-8.0); Triglycerides 68 mg/dL (<150)
== END 2024-11-28 08:32 | disposition home or self-care (01) ==
LOC: HO.WFDLDS 08:31
PROVIDERS: Visit Provider Family Medicine
DX: Z00.00 Encounter for general adult medical examination without abnormal findings (principal); R53.82 Chronic fatigue, unspecified; E78.5 Hyperlipidemia, unspecified
CPT/HCPCS: 36415; 80053; 80061

== ENCOUNTER 2024-12-03 14:26 | Outpatient (AMB) | payer BC, SELFPAY ==
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
[2024-12-03 14:43] VITALS: BP 98/62; PULSE 81; RESP 14; TEMP 36.6; O2SAT 99; BMI 19.6
--- OUTSIDE RECORDS SUMMARY | 2024-12-03 15:22 | XMS_ITS | Clinical Summary ---
Author Organization [address] [id number] Phone Care Team Providers Care Wine And Spirits Clerk Name Role Phone No, Pcp (Do Not [...] patient's age to complete this topic Insurance [facility] Care Teams Wine And Spirits Clerk Relationship Specialty Start Date End Date No, Pcp (Do Not Change Name) PCP - General 09/26/20
== END 2024-12-03 15:02 | disposition home or self-care (01) ==
LOC: HO.HMCFM 14:27
PROVIDERS: PCP Family Medicine; Visit Provider Family Medicine
DX: E78.5 Hyperlipidemia, unspecified (principal); V89.2XXA Person injured in unspecified motor-vehicle accident, traffic, initial encounter; M54.2 Cervicalgia; M25.512 Pain in left shoulder; R63.4 Abnormal weight loss

== ENCOUNTER → 2024-12-03 14:26 | Outpatient (BNVA) | payer BC, SELFPAY | PROVIDERS: PCP Family Medicine; Visit Provider Family Medicine | DX: M54.2 Cervicalgia (principal); E78.5 Hyperlipidemia, unspecified; M25.512 Pain in left shoulder; R63.4 Abnormal weight loss; V89.2XXA Person injured in unspecified motor-vehicle accident, traffic, initial encounter | CPT/HCPCS: 96127 ==